=== PATIENT | male | born 1945 | race Caucasian/White ===

== ENCOUNTER → 2016-10-05 | Outpatient (CLI) | payer OTHER ==
[~2016-10-05] MED LIST: ASPI-435 PO; ATOR-22 PO; BROM0.07; CLR10 PO; DIFL0.0519; GABA-112 PO; GATI1SOL2; IBUP-1050 PO; MULTCAP33 PO
--- NOTE | 2016-10-05 11:48 | DIAGNOSTIC IMAGING REPORT ---
LEFT TIBIA/FIBULA 2 VIEWS ROUTINE CLINICAL HISTORY: 70 years-old Male presenting with Leg pain, medial, left. TECHNIQUE: Frontal and lateral views of the left lower leg were obtained. COMPARISON: Plain radiographs of the left knee from 2009. FINDINGS: Evidence of total left knee arthroplasty may be new from prior given the bridging component. Normal alignment. No hardware complication is evident. No acute fracture. Ankle mortise grossly intact. IMPRESSION: No acute osseous injury of the left lower leg. Postsurgical changes of total left knee arthroplasty without complication. Electronically signed by: Kar Dorado M.D. 10/05/2016 11:46 AM Dictated Date/Time: 10/05/2016 11:45 AM
== END | disposition home or self-care (01) ==
LOC: C.RADPV 11:23
PROVIDERS: ATTEND Family Medicine
DX: M79.605 Pain in left leg (principal)

== ENCOUNTER → 2016-10-06 | Outpatient (CLI) | payer OTHER ==
[2016-10-06 12:55] LABS: ALT/SGPT 39 U/L (12-78); AST/SGOT 23 U/L (15-37); BLOOD UREA NITROGEN 15 mg/dl (7-18); CARBON DIOXIDE 29 mmol/L (21-32); CHLORIDE 107 mmol/L (98-107); CHOLESTEROL 128 mg/dl (0-200); GLUCOSE 106 mg/dl (70-99); POTASSIUM 3.9 mmol/L (3.5-5.1); SODIUM 141 mmol/L (136-145); TRIGLYCERIDES 92 mg/dl (0-150); VERY LOW DENSITY LIPOPROT CALC 18 mg/dl
[2016-10-06 12:56] LABS: ALB/GLOB RATIO 1.1 (0.9-2); ALKALINE PHOSPHATASE 93 U/L (45-117); CHOLESTEROL/HDL RATIO 2.4; HDL CHOLESTEROL 54 mg/dl; LDL CHOLESTEROL CALCULATED 56 mg/dl
== END | disposition home or self-care (01) ==
LOC: C.LABPVFM 08:01
PROVIDERS: ATTEND Family Medicine
DX: E78.5 Hyperlipidemia, unspecified (principal)

== ENCOUNTER → 2016-10-11 | Day surgery (SDC) | payer OTHER ==
[2016-09-06 07:38] VITALS: Ht 188 cm; Wt 94.5 kg
[~2016-10-11] VITALS: Ht 188 cm; Wt 94.5 kg
[~2016-10-11] MED LIST changes: +500ML BSS 0.3ML EPI 1:1000PF IRRIG ONE; +ACETAMINOPHEN 325 MG TAB PO PRN; +AMVISC PLUS 0.8ML SYRINGE INT OCU ONE; +ATROPINE SULFATE 0.1 MG/ML 5ML SYR IV PRN; +BSS FLUSH ONE; +EpHEDrine SULFATE INJ 50 MG/ML AMP IV PRN; +EpINEphrine INJ 1MG/ML AMP 1 MG/ML AMP ONE; +LACTATED RINGER'S 1000ML 500 ML IV SCH; +LIDOCAINE 3.5% OPH GEL PER APPLICATION CHARGE ONE; +LIDOCAINE HCL 1% MPF 2 ML VIAL ONE; +MIDAZOLAM HCL 1 MG/ML 2ML VIAL ONE; +OCUCOAT 1 ML SOLN IO ONE; +PHENYLEPHRINE HCL 10% OP SOLN PER DROP CHARGE OPR SCH; +POVIDONE-IODINE OP SOLN 30 ML BTL ONE; +PROPARACAINE 0.5% OP SOLN PER DROP CHARGE OPR SCH; +TOBRAMYCIN/DEXAMETHASONE OPH OINT PER APPLN CHARGE ONE
[2016-10-11] MEDS: TROPICAMIDE 1% OP SOLN PER DROP CHARGE OPR SCH ×2 (09:01→09:07)
[2016-10-11] MEDS: PHENYLEPHRINE HCL 2.5% OP SOLN PER DROP CHARGE OPR SCH ×2 (09:01→09:06)
--- NOTE | 2016-10-11 09:01 | History & Physical Bridge - SC ---
H&P Re-Evaluation Bridge Note: I have examined the patient, reviewed the History & Physical and in the interval since the performance of the History & Physical I have noted the following changes of clinical significance: No changes noted
[2016-10-11] MEDS: CYCLOPENTOLATE HCL 1% OP SOLN PER DROP CHARGE OPR SCH ×2 (09:02→09:08)
[2016-10-11] MEDS: KETOROLAC 0.5% OP SOLN PER DROP CHARGE OPR SCH ×2 (09:03→09:09)
[2016-10-11] MEDS: GATIFLOXACIN OP SOLN PER DROP CHARGE OPR SCH ×2 (09:04→09:15)
--- NOTE | 2016-10-11 09:45 | [facility] Operative Report ---
Operative Report Date of Service Oct 11, 2016. Operative Report 1. PREOPERATIVE DIAGNOSIS: Cataract of the right eye. 2. POSTOPERATIVE DIAGNOSIS: Same. 3. PROCEDURE: Phacoemulsification with intraocular lens implantation of the right eye. SURGEON: Dr. Andi Swan. ANESTHESIA: Topical Lidocaine gel, 1% Non- Preserved intracameral Lidocaine, and monitored intravenous sedation. INDICATIONS FOR THE PROCEDURE: The patient is a 70 - year-old male with a history of cataract of the right eye causing significant visual impairment. The details of the proposed procedure were explained to the patient who asked appropriate questions and following discussion of all risks, benefits and alternatives agreed to have the procedure done. 4. OPERATION AND FINDINGS: DESCRIPTION OF PROCEDURE: After informed consent was obtained, the patient was brought to the Operating Room at the [facility]. The patient was placed in a supine position and then the right eye was prepped and draped in the usual sterile fashion for intraocular surgery. A drop of topical Lidocaine gel was placed in the operative eye. A wire lid speculum was then placed in the fornices. A corneal paracentesis was then created temporally. The Non-Preserved Lidocaine was then instilled into the anterior chamber. The anterior chamber was then pressurized with viscoelastic. A 2.0 mm clear corneal incision was then created temporally. A cystotome was inserted into the anterior chamber and used to create a tear in the anterior lens capsule. This capsular tear was then used to create a small flap and the flap was dragged in a counterclockwise direction in order to create a continuous curvilinear capsulorrhexis. Hydrodissection was accomplished with balanced salt solution. Phacoemulsification of the lens nucleus was then performed in a standard [id number] technique. The phaco time was 37 seconds with an average power of 19 %. The remaining cortical material was removed using irrigation aspiration. The capsular bag was then filled with viscoelastic. A Bausch & Lomb MI60L +26.0 diopters lens was then loaded into the injector and injected into the capsular bag. The remaining viscoelastic was removed with the irrigation aspiration handpiece. The wound was hydrated and then checked and found to be watertight. The intraocular pressure was checked and found to be adequate. The wire lid speculum was removed and the patient's face was cleaned and dried. TobraDex ointment was placed in the inferior fornix. The patient was discharged to the Recovery Room having tolerated the procedure well. There were no complications. The patient will be seen tomorrow in the office for follow-up. I attest to the content of the Intraoperative Record and any orders documented therein. Any exceptions are noted below.
--- NOTE | 2016-10-11 09:45 | Discharge Instructions-SurgCtr ---
Discharge Instructions Date of Service Oct 11, 2016. Visit Reason for Visit: Cataract Right Eye Discharge Discharge Diagnosis / Problem: cataract Discharge Goals Goal(s): Improve function Activity Recommendations Activity Limitations: per Instructions/Follow-up section Anesthesia . Post Anesthesia Instructions: If you have had General Anesthesia or IV Sedation: * Do not drive today. * Resume driving when surgeon permits. * Do not make important decisions or sign legal documents today. * Call surgeon for: 1. Temperature elevations greater than 101 degrees F. 2. Uncontrollable pain. 3. Excessive bleeding. 4. Persistent nausea and vomiting. 5. Medication intolerance (nausea, vomiting or rash). * For nausea and vomiting use only clear liquids such as: tea, soda, bouillon until nausea subsides, then gradually increase diet as tolerated. * If you have any concerns or questions, call your surgeon's office. If physician is unavailable and it is an emergency, call 911 or go to the nearest emergency room. . Instructions / Follow-Up Instructions / Follow-Up ACTIVITY RECOMMENDATIONS: * No strenuous lifting, jogging or running for 4 days * No swimming or yard work for 1 week. * Limited bending is permitted, such as putting on shoes. RETURN TO SCHOOL/WORK: No work until seen by physician in office. MEDICATIONS: Resume previous medications unless instructed otherwise by your surgeon. This includes eye drops for glaucoma. Zymaxid/Gatifloxacin (salas cap) - one drop every 2 hours until bedtime Nevanac/Ilevro/Prolensa/Ketorolac (mooney cap) - one drop every 4 hours until bedtime Prednisolone/Durezol (white/pink cap, SHAKE WELL) - one drop every 2 hours until bedtime Starting tomorrow - all 3 drops every 4 hours until seen in the office Optive drops - as needed for discomfort SPECIAL CARE INSTRUCTIONS: * Wear eyeshield when sleeping, for four nights. * You may wear your own glasses or sunglasses while awake. * You may read or watch TV * You may shower and wash your face, but be gentle around the eye and pat dry. * Blurry vision and mild irritation are normal. * Call office if pain is more severe or vision becomes dark at . FOLLOW UP VISIT: Follow-up with Dr Swan tomorrow. Diet Recommendations Home Diet: resume previous diet Procedures Procedures Performed: Right Cataract Phacoemulsification With Intraocular Lens Implant Pending Studies Studies pending at discharge: no Medical Emergencies . Who to Call and When: Medical Emergencies: If at any time you feel your situation is an emergency, please call 911 immediately. . Non-Emergent Contact Non-Emergency issues call your: Tufting Machine Operator Single Needle . . "Provider Documentation" section prepared by Andi Swan. .
--- NOTE | 2016-10-11 09:51 | Anesthesia Progress Nt - [facility] ---
Anesthesia Post Op Note Date & Time Oct 11, 2016 at 09:50 Vital Signs Pain Intensity: 0 Vital Signs Past 12 Hours Date Time Temp Pulse Resp B/P (MAP) Pulse Ox O2 Delivery O2 Flow Rate FiO2 10/11/16 08:53 36.5 61 14 164/97 (119) 100 Room Air Notes Mental Status: alert / awake / arousable, participated in evaluation Pt Amnestic to Procedure: Yes Nausea / Vomiting: adequately controlled Pain: adequately controlled Airway Patency, RR, SpO2: stable & adequate BP & HR: stable & adequate Hydration State: stable & adequate Anesthetic Complications: no major complications apparent
[2016-10-11 10:20] VITALS: BP 136/82; PULSE 50; O2SAT 100
== END | disposition home or self-care (01) ==
LOC: X.SURG 08:22
PROVIDERS: ATTEND Ophthalmology
DX: H26.9 Unspecified cataract (principal); E78.5 Hyperlipidemia, unspecified; N40.0 Benign prostatic hyperplasia without lower urinary tract symptoms; M25.50 Pain in unspecified joint; Z79.899 Other long term (current) drug therapy

== ENCOUNTER → 2016-11-01 | Day surgery (SDC) | payer OTHER ==
[2016-10-20 09:24] VITALS: Ht 188 cm; Wt 94.5 kg
[~2016-11-01] VITALS: Ht 188 cm; Wt 94.5 kg
[~2016-11-01] MED LIST changes: -ASPI-435 PO; -ATROPINE SULFATE 0.1 MG/ML 5ML SYR IV PRN; -EpHEDrine SULFATE INJ 50 MG/ML AMP IV PRN; -GATI1SOL2; +PHENYLEPHRINE HCL 10% OP SOLN PER DROP CHARGE OPL SCH; -PHENYLEPHRINE HCL 10% OP SOLN PER DROP CHARGE OPR SCH; +PROPARACAINE 0.5% OP SOLN PER DROP CHARGE OPL SCH; -PROPARACAINE 0.5% OP SOLN PER DROP CHARGE OPR SCH
[2016-11-01] MEDS: PHENYLEPHRINE HCL 2.5% OP SOLN PER DROP CHARGE OPL SCH ×2 (09:52→09:56)
[2016-11-01] MEDS: TROPICAMIDE 1% OP SOLN PER DROP CHARGE OPL SCH ×2 (09:52→09:57)
[2016-11-01] MEDS: CYCLOPENTOLATE HCL 1% OP SOLN PER DROP CHARGE OPL SCH ×2 (09:53→09:58)
[2016-11-01] MEDS: GATIFLOXACIN OP SOLN PER DROP CHARGE OPL SCH ×2 (09:54→10:03)
[2016-11-01] MEDS: KETOROLAC 0.5% OP SOLN PER DROP CHARGE OPL SCH ×2 (09:54→09:59)
--- NOTE | 2016-11-01 10:01 | History & Physical Bridge - SC ---
H&P Re-Evaluation Bridge Note: I have examined the patient, reviewed the History & Physical and in the interval since the performance of the History & Physical I have noted the following changes of clinical significance: Diagnosis: Left Cataract Procedure: Left Cataract Removal with Lens Implant No changes noted
--- NOTE | 2016-11-01 10:35 | [facility] Operative Report ---
Operative Report Date of Service Nov 01, 2016. Operative Report 1. PREOPERATIVE DIAGNOSIS: Cataract of the left eye. 2. POSTOPERATIVE DIAGNOSIS: Same. 3. PROCEDURE: Phacoemulsification with intraocular lens implantation of the left eye. SURGEON: Dr. Andi Swan. ANESTHESIA: Topical Lidocaine gel, 1% Non- Preserved intracameral Lidocaine, and monitored intravenous sedation. INDICATIONS FOR THE PROCEDURE: The patient is a 70 - year-old male with a history of cataract of the left eye causing significant visual impairment. The details of the proposed procedure were explained to the patient who asked appropriate questions and following discussion of all risks, benefits and alternatives agreed to have the procedure done. 4. OPERATION AND FINDINGS: DESCRIPTION OF PROCEDURE: After informed consent was obtained, the patient was brought to the Operating Room at the [facility]. The patient was placed in a supine position and then the left eye was prepped and draped in the usual sterile fashion for intraocular surgery. A drop of topical Lidocaine gel was placed in the operative eye. A wire lid speculum was then placed in the fornices. A corneal paracentesis was then created temporally. The Non-Preserved Lidocaine was then instilled into the anterior chamber. The anterior chamber was then pressurized with viscoelastic. A 2.0 mm clear corneal incision was then created temporally. A cystotome was inserted into the anterior chamber and used to create a tear in the anterior lens capsule. This capsular tear was then used to create a small flap and the flap was dragged in a counterclockwise direction in order to create a continuous curvilinear capsulorrhexis. Hydrodissection was accomplished with balanced salt solution. Phacoemulsification of the lens nucleus was then performed in a standard [id number] technique. The phaco time was 31 seconds with an average power of 18 %. The remaining cortical material was removed using irrigation aspiration. The capsular bag was then filled with viscoelastic. A Bausch & Lomb MI60L +26.5 diopters lens was then loaded into the injector and injected into the capsular bag. The remaining viscoelastic was removed with the irrigation aspiration handpiece. The wound was hydrated and then checked and found to be watertight. The intraocular pressure was checked and found to be adequate. The wire lid speculum was removed and the patient's face was cleaned and dried. TobraDex ointment was placed in the inferior fornix. The patient was discharged to the Recovery Room having tolerated the procedure well. There were no complications. The patient will be seen tomorrow in the office for follow-up. I attest to the content of the Intraoperative Record and any orders documented therein. Any exceptions are noted below.
--- NOTE | 2016-11-01 10:35 | Discharge Instructions-SurgCtr ---
Discharge Instructions Date of Service Nov 01, 2016. Visit Reason for Visit: Cataract Left Eye Discharge Discharge Diagnosis / Problem: cataract Discharge Goals Goal(s): Improve function Activity Recommendations Activity Limitations: per Instructions/Follow-up section Anesthesia . Post Anesthesia Instructions: If you have had General Anesthesia or IV Sedation: * Do not drive today. * Resume driving when surgeon permits. * Do not make important decisions or sign legal documents today. * Call surgeon for: 1. Temperature elevations greater than 101 degrees F. 2. Uncontrollable pain. 3. Excessive bleeding. 4. Persistent nausea and vomiting. 5. Medication intolerance (nausea, vomiting or rash). * For nausea and vomiting use only clear liquids such as: tea, soda, bouillon until nausea subsides, then gradually increase diet as tolerated. * If you have any concerns or questions, call your surgeon's office. If physician is unavailable and it is an emergency, call 911 or go to the nearest emergency room. . Diet Recommendations Home Diet: resume previous diet Procedures Procedures Performed: Left Cataract Phacoemulsification With Intraocular Lens Implant Pending Studies Studies pending at discharge: no Medical Emergencies . Who to Call and When: Medical Emergencies: If at any time you feel your situation is an emergency, please call 911 immediately. . Non-Emergent Contact Non-Emergency issues call your: Customer Care Specialist . . "Provider Documentation" section prepared by Andi Swan. .
[2016-11-01 10:36] VITALS: TEMP 36.7
[2016-11-01 10:57] VITALS: BP 119/77; PULSE 74; O2SAT 98
--- NOTE | 2016-11-01 11:03 | Anesthesia Progress Nt - [facility] ---
Anesthesia Post Op Note Date & Time Nov 01, 2016 at 11:03 Vital Signs Pain Intensity: 0 Vital Signs Past 12 Hours Date Time Temp Pulse Resp B/P (MAP) Pulse Ox O2 Delivery O2 Flow Rate FiO2 11/01/16 10:57 74 20 119/77 (91) 98 Room Air 11/01/16 10:36 36.7 51 18 124/76 (92) 98 Room Air 11/01/16 09:30 36.3 58 16 141/85 (103) 97 Room Air Notes Mental Status: alert / awake / arousable, participated in evaluation Pt Amnestic to Procedure: Yes Nausea / Vomiting: adequately controlled Pain: adequately controlled Airway Patency, RR, SpO2: stable & adequate BP & HR: stable & adequate Hydration State: stable & adequate Anesthetic Complications: no major complications apparent
== END | disposition home or self-care (01) ==
LOC: X.SURG 09:19
PROVIDERS: ATTEND Ophthalmology
DX: H26.9 Unspecified cataract (principal); E78.5 Hyperlipidemia, unspecified; N40.0 Benign prostatic hyperplasia without lower urinary tract symptoms; G50.0 Trigeminal neuralgia; Z96.659 Presence of unspecified artificial knee joint; Z83.3 Family history of diabetes mellitus; Z82.49 Family history of ischemic heart disease and other diseases of the circulatory system

== ENCOUNTER → 2016-11-28 | Outpatient (CLI) | payer OTHER ==
[~2016-11-28] MED LIST changes: -500ML BSS 0.3ML EPI 1:1000PF IRRIG ONE; -ACETAMINOPHEN 325 MG TAB PO PRN; -AMVISC PLUS 0.8ML SYRINGE INT OCU ONE; -BSS FLUSH ONE; -EpINEphrine INJ 1MG/ML AMP 1 MG/ML AMP ONE; -LACTATED RINGER'S 1000ML 500 ML IV SCH; -LIDOCAINE 3.5% OPH GEL PER APPLICATION CHARGE ONE; -LIDOCAINE HCL 1% MPF 2 ML VIAL ONE; -MIDAZOLAM HCL 1 MG/ML 2ML VIAL ONE; -OCUCOAT 1 ML SOLN IO ONE; -PHENYLEPHRINE HCL 10% OP SOLN PER DROP CHARGE OPL SCH; -POVIDONE-IODINE OP SOLN 30 ML BTL ONE; -PROPARACAINE 0.5% OP SOLN PER DROP CHARGE OPL SCH; -TOBRAMYCIN/DEXAMETHASONE OPH OINT PER APPLN CHARGE ONE
[2016-11-28 13:03] LABS: BLOOD UREA NITROGEN 21 mg/dl (7-18); CREATININE 1.06 mg/dl (0.60-1.40)
== END | disposition home or self-care (01) ==
LOC: C.LABPVFM 09:25
PROVIDERS: ATTEND Orthopaedic Surgery Adult Reconstructive Orthopaedic Surgery
DX: Z01.812 Encounter for preprocedural laboratory examination (principal)

== ENCOUNTER 2022-05-19 11:03 | Observation (INO) ==
--- NOTE | 2022-03-30 15:24 | PAT Medication Instructions ---
Medication Instructions Date of Service March 30, 2022 Home Medications Medication Instructions Recorded methylphenidate HCl 27 mg 27 mg PO QAM #30 tabs 11/01/21 tablet,extended release 24 hr (Concerta) psyllium husk 0.4 gram capsule 0.4 g PO DAILY #30 caps 11/01/21 (Fiber (psyllium husk)) methylphenidate HCl 27 mg tablet,extended release 24 hr (Concerta) 27 mg PO QAM psyllium husk 0.4 gram capsule (Fiber (psyllium husk)) 0.4 g PO DAILY acetaminophen 500 mg tablet 500 mg PO Q6H PRN Pain sildenafil 50 mg tablet 50 mg PO DAILY PRN Erectile Dysfunction STOP taking 24 hours before surgery sildenafil 50 mg tablet 50 mg PO DAILY PRN Erectile Dysfunction DO NOT take the morning of surgery methylphenidate HCl 27 mg tablet,extended release 24 hr (Concerta) 27 mg PO QAM psyllium husk 0.4 gram capsule (Fiber (psyllium husk)) 0.4 g PO DAILY Take morning of surgery With a small sip of water, OTHERWISE NOTHING TO EAT OR DRINK AFTER MIDNIGHT: acetaminophen 500 mg tablet 500 mg PO Q6H PRN Pain (if needed) Take evening before surgery acetaminophen 500 mg tablet 500 mg PO Q6H PRN Pain (if needed) Other Notes If you have any questions please call us at [phone] or [phone] or [phone] or [phone]
--- NOTE | 2022-04-04 11:42 | Anesthesiology Consultation ---
Date of Service April 04, 2022 Assessment & Plan (1) Encounter for pre-operative examination: - COVID screening: Per assessment on 04/04: No known COVID-19 positive contacts or current COVID-19 related symptoms. Travel screen negative. Patient vaccinated. At surgeon discretion if preop Covid testing being done. - Outpatient joint assessment: Pt currently scheduled for inpatient pathway. If surgeon requests review for outpatient joint pathway, patient not recommended candidate for outpatient joint program from anesthesia standpoint. - Patient acceptable risk for surgery pending surgeon-ordered PCP preop evaluation (JAYEG, appt 04/06). Chart Review Chart Review: Patient seen in Pre Admission Testing Teaching & Discussion Pre-Anesthesia Teaching/Discussion Notes: Instructed NPO after midnight before surgery,except medications with 15 cc of water. Medication instructions provided according to the PAT guidelines. p History Surgery Operation Date: 04/28/22 07:00 Proposed Procedures p Right Shoulder Anatomic Total Shoulder Replacement - Bhargav Santana M.D. Height/Weight Height: 6 ft 2 in Weight: 94 kg Allergies Allergy/AdvReac Type Severity Reaction Status Date / Time vancomycin Allergy Severe N/V, Verified 04/05/22 08:27 altered mental status, fever, chills, sweats,hives mold Allergy Mild Rhinitis Verified 04/05/22 08:27 pollen extracts Allergy Mild Rhinitis Verified 04/05/22 08:27 tree and shrub pollen Allergy Mild Rhinitis Verified 04/05/22 08:27 procaine AdvReac Intermediate Tachycardia Verified 04/05/22 08:27 doxycycline AdvReac Unknown Severe sun Verified 04/05/22 08:27 sensitivity Medications Home Medications Medication Instructions Recorded Confirmed Last Taken methylphenidate HCl 27 mg 27 mg PO QAM #30 tabs 11/01/21 03/30/22 Unknown tablet,extended release 24 hr (Concerta) psyllium husk 0.4 gram capsule 0.4 g PO DAILY #30 caps 11/01/21 03/30/22 Unknown (Fiber (psyllium husk)) acetaminophen 500 mg tablet 500 mg PO Q6H PRN Pain 03/30/22 03/30/22 Unknown sildenafil 50 mg tablet 50 mg PO DAILY PRN Erectile 03/30/22 03/30/22 Unknown Dysfunction Past Medical History Medical History ADHD BPH (benign prostatic hyperplasia) No medications Chronic pain Gout Hx (single episode) History of colitis Hx microscropic colitis (~), 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 but was then 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 it was a "false positive"- no current issues/"resolved" History of skin cancer Hyperlipidemia No current medications Trigeminal neuralgia Hx, no recent issues Exercise / Class Metabolic Activity II 4-5 Yardwork/Stairs/Walk up hill Past Family History Family History Father Diabetes Hypertension Mother Cancer Denies family history of Ovarian cancer Prostate cancer Myocardial infarction Breast cancer Past Surgical History Surgical History History of cataract surgery R/L History of colonoscopy History of open reduction and internal fixation (ORIF) procedure right forearm with hardware History of surgical removal of skin lesion thumb area History of total knee arthroplasty Left knee History of vasectomy S/P inguinal hernia repair right S/P revision of total knee left knee Past Anesthesia History No Family Hx of Anesthesia Complications and Other (Slow to wake) History of PONV No Hx of PONV and No Hx of Motion Sickness Social History Smoking Status: Never smoker Do You Dip or Chew Tobacco: No Hx Alcohol Use: Yes alcohol intake frequency: holidays/special occasions only Hx Substance Use: No substance use type: does not use Review of Systems Patient denies chest pain, shortness of breath, dyspnea on exertion, fever, chills, cough, wheezing, palpitations. Physical Exam Vital Signs VITALS BP 132/76 P 75 TEMP 99.0 SP02 97%RA RESP 16 PHYSICAL Full cervical extension range of motion. Full TMJ range of motion. TMD 3 finger breaths Mallampati Score 2 Dentition: + implants (several) Lungs: clear throughout to auscultation Cardiac: regular rate and rhythm, no murmurs noted Spine: normal Carotid arteries: negative bruit Extremities: no edema Lab Results Anesthesia Preop Results Results Anesthesia Widget: WBC 6.99 K/ul (4.8-10.8) 04/04/22 Hgb 14.3 g/dl (14.0-18.0) 04/04/22 Hct 41.2 % (42.0-52.0) L 04/04/22 Plt 215 K/uL (130-400) 04/04/22 Na 138 mmol/L (136-145) 04/04/22 K 4.1 mmol/L (3.5-5.1) 04/04/22 Cl 105 mmol/L (98-107) 04/04/22 CO2 27 mmol/L (21-32) 04/04/22 BUN 26 mg/dl (6-23) H 04/04/22 Creat 1.05 mg/dl (0.6-1.4) 04/04/22 Glucose Level 96 mg/dl (70-99(Fasting)) 04/04/22 PT 10.7 Seconds (9.0-12.0) 04/04/22 PTT 26.1 Seconds (21.0-31.0) 04/04/22 INR 1.0 (0.9-1.1) 04/04/22 Urine Color Dark Yellow 04/04/22 Urine Appearance Clear (Clear) 04/04/22 Urine pH 6.0 (4.5-7.5) 04/04/22 Urine Specific Stowell 1.028 (1.000-1.030) 04/04/22 Urine Protein Trace (Negative) H 04/04/22 Urine Glucose (UA) Negative (Negative) 04/04/22 Urine Ketones Trace (Negative) H 04/04/22 Urine Blood Negative (Negative) 04/04/22 Urine Nitrite Negative (Negative) 04/04/22 Urine Bilirubin Negative (Negative) 04/04/22 Urine Urobilinogen Negative (Negative) 04/04/22 Urine Leukocyte Esterase Negative (Negative) 04/04/22 Urine WBC (Auto) 0 /hpf (0-5) 04/04/22 Urine RBC (Auto) 0-4 /hpf (0-4) 04/04/22 Urine Hyaline Casts (Auto) 0 /lpf (0-5) 04/04/22 Urine Epithelial Cells (Auto) 0-5 /lpf (0-5) 04/04/22 Urine Bacteria (Auto) Negative (Negative) 04/04/22 Blood Type O Positive 04/04/22 Antibody Screen NEGATIVE 04/04/22 Testing Electrocardiogram Date: 04/04/22 NSR at 65bpm. Chest X-Ray Date: 04/04/22 FINDINGS: Several old right rib fractures are incidentally noted. Lung volumes are normal. No consolidation to suggest pneumonia. Linear left basilar opacity favors atelectasis. There is no pneumothorax or pleural effusion. Cardiac size is normal. Mediastinal contours are normal. There is no evidence for pulmonary edema. IMPRESSION: No acute cardiopulmonary findings. No change in appearance of the chest. COVID-19 Risk Screen Screening Information COVID-19 Screen Date: 04/04/22 Exposure 21 Days Family/Household +COVID Last 21 Days: No Exposure 10 Days Any COVID Exposure Last 10 Days: No Symptoms Last 10 Days Experienced COVID Sx Last 10 Days: No + COVID 0-90 Days COVID + in Last 0-90 Days: No
--- NOTE | 2022-05-18 16:50 | History & Physical Report ---
Date of Service May 18, 2022 Assessment & Plan (1) Primary osteoarthritis, right shoulder: Plan: He has severe right shoulder primary glenohumeral joint arthritis. We discussed further conservative management with repeat glenohumeral joint steroid injections versus definitive surgical intervention with a total shoulder arthroplasty. We again discussed anatomic versus reverse total shoulder arthroplasty, and the criteria and differences in activity restrictions for both. His MRI shows that his rotator cuff is intact, and I think he would be a good candidate for an anatomic total shoulder. He really wants to proceed with right shoulder replacement surgery, and does not want to pursue further injections. I do think this is reasonable. Risks, benefits, and alternatives of surgery were explained in detail. The surgical procedure, as well as postoperative recovery and rehabilitation, was also explained in detail. Risks include bleeding; infection; damage to surrounding structures such as nerves, blood vessels, and tendons that run in the area; persistent pain or stiffness; hardware failure; dislocation; brachial plexus palsy; blood clots; or need for further surgery. The patient understands all of this and wishes to proceed with surgery. Risks will be reviewed on the day of surgery and informed consent obtained. History of Present Illness Chief Complaint: Right shoulder pain Primary Care Provider: Alma Montoya MD Mr. Rick squires. Again, he is a 75-year-old esddt-fazs-orfcyhbe male with chronic right shoulder pain with gradual progressive worsening. He saw Dr. Spangler in mid-September, and was given a shoulder joint steroid injection for his arthritis. They discussed shoulder replacement surgery. He comes in today for second opinion evaluation of such. He reports that he is very active and lives alone. 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 He notes that after his injection, he got some short-term improvement in his pain, but nothing terribly significant. This pain is waking him up at night. He previously used to use anti-inflammatories fairly effectively, but eventually developed colitis related to diclofenac use, and had to stop. Is fairly healthy and very active. He denies significant medical problems. Allergies Allergy/AdvReac Type Severity Reaction Status Date / Time vancomycin Allergy Severe N/V, Verified 05/03/22 10:27 altered mental status, fever, chills, sweats,hives mold Allergy Mild Rhinitis Verified 05/03/22 10:27 pollen extracts Allergy Mild Rhinitis Verified 05/03/22 10:27 tree and shrub pollen Allergy Mild Rhinitis Verified 05/03/22 10:27 procaine AdvReac Intermediate Tachycardia Verified 05/03/22 10:27 doxycycline AdvReac Unknown Severe sun Verified 05/03/22 10:27 sensitivity Home Medications Medication Instructions Recorded Confirmed Type methylphenidate HCl 27 mg 27 mg PO QAM #30 tabs 11/01/21 05/03/22 Rx tablet,extended release 24 hr (Concerta) psyllium husk 0.4 gram capsule 0.4 g PO DAILY #30 caps 11/01/21 05/03/22 Rx (Fiber (psyllium husk)) acetaminophen 500 mg tablet 500 mg PO Q6H PRN Pain 03/30/22 05/03/22 History sildenafil 50 mg tablet 50 mg PO DAILY PRN Erectile 03/30/22 05/03/22 History Dysfunction Past Med/Surg History Medical History ADHD BPH (benign prostatic hyperplasia) Chronic pain Gout History of colitis History of skin cancer Hyperlipidemia Trigeminal neuralgia Surgical History History of cataract surgery History of colonoscopy History of open reduction and internal fixation (ORIF) procedure History of surgical removal of skin lesion History of total knee arthroplasty History of vasectomy S/P inguinal hernia repair S/P revision of total knee Family History Father Diabetes Hypertension Mother Cancer Denies family history of Ovarian cancer Prostate cancer Myocardial infarction Breast cancer Social History Smoking Status: Never smoker Second Hand Exposure: No; Hx Alcohol Use: Yes Alcohol Intake Frequency: Monthly or Less Hx Substance Use: No Preferred Language: Citizen Of [place] Communication Ability: Effective Hearing Ability: Use of Hearing Aid Carbon Accountant Required: No Beliefs That Will Affect Care: None marital status: Single Current Living Situation: Alone current occupational status: retired How many Children do You have: 0 Feels Safe at Home: Yes Childhood Exposure to Second-Hand Smoke: Yes caffeine: Yes (Coffee ) Dental Care, Regularly: Yes 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: 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 Rotator cuff strength is overall well maintained, with the exception of external rotation, which is slightly weak. Results & Data Diagnostic Findings Previous x-rays of the right shoulder from September 29 were reviewed. They show severe glenohumeral joint arthritis with complete loss of the joint space and large osteophyte formation. No obvious proximal migration of the humeral head. New MRI of the right shoulder obtained this morning was reviewed. It shows some rotator cuff tendinitis and very mild partial-thickness rotator cuff tearing, but no high-grade partial-thickness or full-thickness rotator cuff tears. Rotator cuff looks largely okay. Type II acromion. There is some acromioclavicular joint arthritis causing some mass-effect on the underlying supraspinatus muscle belly. No fatty atrophy of the rotator cuff muscle bellies. Severe glenohumeral joint arthritis.
[~2022-05-19 11:03] MED LIST changes: +ACETAMINOPHEN 500 MG TAB PO SCH; -ATOR-22 PO; -BROM0.07; +BUPIVACAINE 0.5 % 5 MG/1 ML PF 10ML VIAL ONE; -CLR10 PO; +CeleBREX 200 MG CAP PO SCH; -DIFL0.0519; +FAMOTIDINE 20 MG TAB PO SCH; -GABA-112 PO; +GABAPENTIN 300 MG CAP PO SCH; -IBUP-1050 PO; +LR 15ML/HR IV SCH; +METOCLOPRAMIDE HCL 10 MG TABLET PO SCH; -MULTCAP33 PO; +TRANEXAMIC ACID 1,000 MG **IV Pre-op IV SCH; +dexAMETHasone 4 MG TAB PO SCH
[2022-05-19] MEDS ORDERED: ATROPINE SULFATE 0.1 MG/ML 10ML SYR IV PRN (12:40)
[2022-05-19] MEDS ORDERED: LABETALOL HCL IV 5 MG/ML 20ML IV PRN (12:40)
[2022-05-19] MEDS ORDERED: FLUMAZENIL 0.1 MG/1 ML 10 ML VIAL IV PRN (12:40)
[2022-05-19] MEDS ORDERED: ePHEDrine sulfate 50 MG/ML AMP IV PRN (12:40)
[2022-05-19] MEDS ORDERED: NALOXONE HCL 0.4 MG/1 ML VIAL/CARP IV PRN (12:40)
[2022-05-19] MEDS ORDERED: ONDANSETRON INJ 2 MG/ML 2 ML VIAL IV PRN (12:40)
[2022-05-19] MEDS ORDERED: PROMETHAZINE HCL 12.5 MG in SODIUM CHLORIDE 0.9% 50 ML IV PRN (12:40)
[2022-05-19] MEDS ORDERED: HYDROmorphone INJ 1 MG/ML SYRINGE IV PRN (12:40)
[2022-05-19] MEDS ORDERED: fentaNYL citrate PF 100 MCG/2 ML VIAL IV PRN (12:40)
[2022-05-19] MEDS ORDERED: fentaNYL citrate PF 100 MCG/2 ML VIAL ONE (12:43)
[2022-05-19] MEDS ORDERED: MIDAZOLAM HCL 1 MG/ML 2ML VIAL ONE (12:43)
--- NOTE | 2022-05-19 12:55 | History & Physical Bridge Note ---
Date of Service May 19, 2022 History & Physical Bridge Note I have examined the patient, reviewed the History & Physical and in the interval since the performance of the History & Physical I have noted the following changes of clinical significance: no changes noted
[2022-05-19] MEDS ORDERED: LIDOCAINE 2% MPF LOCAL 5 ML VIAL ONE (13:01)
[2022-05-19] MEDS ORDERED: PROPOFOL IV EMULSION 10 MG/ML 20 ML VIAL IV ONE (13:01)
[2022-05-19] MEDS ORDERED: ROCURONIUM BROMIDE 10 MG/ML 5 ML VIAL IV ONE ×2 (13:01→14:01)
[2022-05-19] MEDS ORDERED: ONDANSETRON INJ 2 MG/ML 2 ML VIAL ONE (13:48)
[2022-05-19] MEDS ORDERED: SUGAMMADEX SODIUM 200 MG/2 ML VIAL IV ONE (15:49)
--- NOTE | 2022-05-19 16:07 | Operative Report ---
Post Operative Report Pre & Post Diagnosis Operation Date: 05/19/22 13:55 Pre-Op Diagnosis: Right shoulder primary glenohumeral joint arthritis Post-Op Diagnosis: Right shoulder primary glenohumeral joint arthritis, subacromial impingement I identified the patient and participated in the time-out.: Yes Procedure Operation Date: 05/19/22 13:55 Actual Procedures Right anatomic total shoulder arthroplasty (47126) Open biceps tenodesis (99228) Open acromioplasty (86139) - Bhargav Santana M.D. Surgeon Bhargav Santana MD Director Of Government Sales Tha Redd PA-C Estimated Blood Loss 75 Findings Consistent with Post-Op Diagnosis Specimens None Drains None Anesthesia Type General Regional Complications none Disposition Disposition: Recovery Room Indications Mr. Cabrera is a 76-year-old male with chronic right shoulder pain. History, clinical exam, and imaging were consistent with the above diagnosis. Risks, benefits, and alternatives of surgery were explained in detail. The patient understood all this and wished to proceed. Description of Procedure Components Implanted: Tornier Anatomic Total Shoulder implants Perform+ Pegged Cortiloc polyethylene glenoid: Medium, 40 radius, 15 degree posterior augment Ascend Flex humeral stem: 6B Standard length (86mm) Humeral head: 52 x 23mm, high offset Patient was identified in the preoperative holding area. Operative extremity was marked. Regional blockade was given by the Anesthesia Staff. Patient was then brought back to the operating room, and general anesthesia was induced without complication. Appropriate weight-based dose of Ancef was infused intravenously for antibiotic prophylaxis. The patient was then placed in the beachchair position. Right arm was then prepped and draped in a standard sterile fashion using Chlorhexidine prep. A standard deltopectoral incision was made through the skin and subcutaneous tissue. The cephalic vein was identified and retracted medially. Small branches to the deltoid were coagulated as necessary. The clavipectoral fascia was then incised and the subdeltoid space was opened. The rotator cuff was found to be intact, and I therefore decided to perform an anatomic total shoulder arthroplasty as planned preoperatively. However, a fairly large undersurface spur on the anterolateral aspect of the acromion was palpated. I was concerned that this may wear through and cause a tear of the rotator cuff tendon in the future, requiring revision to a reverse total shoulder arthroplasty. I therefore decided to perform an open acromioplasty. Osteotome and pituitary rongeur were used to resect the undersurface bony spur at the anterolateral corner of the acromion. The biceps tendon was identified within the bicipital groove and tenodesed at the superior border of the pectoralis tendon with #2 FiberWire suture. The biceps tendon was then divided proximal to the tenodesis site and the rotator interval was opened. The proximal portion of the biceps tendon was excised. Lesser tuberosity osteotomy was then performed to detach the subscapularis off of the proximal humerus; this was tagged with a #0 Vicryl suture. The glenohumeral joint was then dislocated, and large osteophytes were debrided with a ronguer. The humeral head cut was then made in the appropriate inclination and version. The intramedullary canal of the humerus was then opened with a canal finder and lateralizing reamer. The humeral canal was then sequentially broached to the appropriate size. A protective cap was then placed on top of the humeral trial. I then turned my attention to the glenoid. The proximal stump of the biceps tendon was excised, along with the labrum circumferentially around the glenoid. The Blueprint drill guide was then positioned on the glenoid, and the guidepin was then inserted. The rotation hole for the angled wilfredo-glenoid reamer was also drilled. The paleo-reamer was then inserted over the guidepin and the anterior half of the glenoid reamed to an appropriate depth. The angled wilfredo-reamer was then inserted over the guidewire and into the rotation hole, and the posterior half of the glenoid reamed to an appropriate depth. The central peg drill hole was made over the guidewire. The drill guide for the peripheral glenoid pegs was then placed onto the glenoid surface, and 3 peripheral drill holes made within the glenoid in an appropriate orientation. Morselized cancellous bone was packed into the fins of the Cortiloc central peg, and bone cement was placed into the 3 peripheral glenoid peg holes. The glenoid component was then implanted into place, and excess cement removed. A trial humeral head was inserted, and a trial reduction was carried out. Once I achieved acceptable joint stability and range of motion with the trial implants, the trials were removed and the final humeral implants impacted into position. Prior to final impaction of the humeral component, I inserted two #2 FiberWire sutures for subsequent repair of the lesser tuberosity osteotomy. I then took the shoulder through full range of motion to ensure good stability and acceptable motion. Wound was then copiously irrigated with sterile saline. The lesser tuberosity and its attached subscapularis were then repaired to the lesser tuberosity with the previously placed #2 FiberWire sutures. The rotator interval was then closed with the shoulder held in external rotation with #2 FiberWire suture. Deep fascia was closed with 0 V-lock suture. Subcutaneous tissue was closed with 2-0 V-lock, and skin was closed with 3-0 V-lock. Skin was then sealed with Dermabond. Sterile dressings were then applied with a waterproof silver- impregnated dressing, and the arm was placed into a sling. The patient was awakened from anesthesia and taken to the Post Anesthesia Care Unit in stable condition. There were no immediate complications from the procedure. I was present and scrubbed for the entire procedure, with the exception of final skin closure and dressing application. Due to the complex nature of the procedure, the entire surgery was performed with the operational assistance of Tha Redd PA-C. The contract administrative assistant, under direct supervision, was involved in the performance of all aspects of the surgical procedure including hemostasis, tissue incision and retraction, instrument management, patient positioning, and wound closure. I attest to the content of the Intraoperative Record and any orders documented therein. Any exceptions are noted below.
--- NOTE | 2022-05-19 17:00 | XRay Report ---
XR shoulder RT min 2V routine CLINICAL HISTORY: Post shoulder surgery COMPARISON STUDY: None. FINDINGS: There is a right shoulder arthroplasty. Hardware appears intact. No fracture or dislocation within the right shoulder. There is an old, healed right fourth rib fracture. IMPRESSION: Status post a right shoulder prosthesis. No evidence for hardware complication. ACT 112: Negative or not required by law. Electronically signed by: Fidel Valencia M.D. 05/19/2022 4:58 PM
[2022-05-19] MEDS ORDERED: MAGNESIUM HYDROXIDE SUSP 30 ML UDC PO PRN (17:03)
[2022-05-19] MEDS ORDERED: bisacodyL 10 MG SUPP PR PRN (17:03)
[2022-05-19] MEDS ORDERED: SODIUM CHLORIDE 0.9% 1000ML 1,000 ML IV SCH (17:03)
--- NOTE | 2022-05-19 17:34 | Anesthesiology Progress Note ---
Date of Service May 19, 2022 Anesthesia Post Procedure Vital Signs Vital Signs: Temp Pulse Pulse Resp BP Pulse Ox O2 Del Method 05/19/22 17:00 36.6 C 81 16 148/77 H 96 Room Air 05/19/22 16:45 36.2 C L 78 20 143/80 H 96 Room Air 05/19/22 16:35 82 20 139/86 97 Room Air 05/19/22 16:25 83 18 146/92 H 99 Oxymask 05/19/22 16:17 36.0 C L 88 16 147/82 H 94 Oxymask 05/19/22 11:38 36.7 C 71 20 142/83 H 96 Room Air O2 Flow Rate 05/19/22 17:00 05/19/22 16:45 05/19/22 16:35 05/19/22 16:25 6 05/19/22 16:17 6 05/19/22 11:38 Transfer of Care Handoff Completed per policy Notes Mental Status: alert / awake / arousable and participated in evaluation Patient Amnestic to Procedure: Yes Nausea / Vomiting: adequately controlled Pain: adequately controlled Airway Patency, RR, SpO2: stable & adequate BP & HR: stable & adequate Hydration State: stable & adequate Anesthetic Complications: no major complications apparent and Pt Satisfied with anesthetic care
[2022-05-19] MEDS: DOCUSATE SODIUM 100 MG CAP PO SCH (20:21)
[2022-05-19] MEDS ORDERED: SENNA 8.6 MG TAB PO SCH (21:00)
[2022-05-20 06:47] LABS: Basophils # (auto) 0.01 K/uL (0-0.2); Basophils % (auto) 0.1 %; Hematocrit (blood only) 41.6 % (42.0-52.0); Hemoglobin 14.2 g/dl (14.0-18.0); Immature Granulocytes # (auto) 0.04 K/uL (0.01-0.20); Immature Granulocytes % (auto) 0.4 %; Lymphocytes # (auto) 0.91 K/uL (1.2-3.4); Lymphocytes % (auto) 8.9 %; Mean Corpuscular Hemoglobin 30.6 pg (25.0-34.0); Mean Corpuscular Hgb Conc 34.1 g/dL (32.0-36.0); Mean Corpuscular Volume 89.7 fL (80.0-100.0); Mean Platelet Volume 9.8 fL (9.4-12.4); Monocytes # (auto) 0.97 K/uL (0.11-0.59); Monocytes % (auto) 9.5 %; Neutrophils # (auto) 8.29 K/uL (1.40-6.50); Neutrophils % (auto) 81.1 %; Platelet Count 200 K/uL (130-400); RDW Standard Deviation 45.1 fL (36.4-46.3); Red Blood Count 4.64 M/uL (4.70-6.10); White Blood Count 10.22 K/ul (4.8-10.8)
[2022-05-20 07:34] LABS: Calcium 8.2 mg/dl (8.6-10.3); Potassium 4.1 mmol/L (3.5-5.1)
[2022-05-20 07:40] LABS: BUN Creatinine Ratio 23.1 (10-20); Creatinine Clr Calc Pharmacy 80.3 ml/min; Est GFR (African American) 94.5 ml/min; Est GFR (Non-African American) 81.6 ml/min
[2022-05-20] MEDS: DOCUSATE SODIUM 100 MG CAP PO SCH (07:48)
[2022-05-20] MEDS ORDERED: MULTIVITAMIN TAB PO SCH (09:00)
--- NOTE | 2022-05-20 10:57 | Orthopedic Progress Note ---
Date of Service May 20, 2022 Assessment & Plan (1) Primary osteoarthritis, right shoulder: Plan: Postoperative day #1 status post right anatomic total shoulder arthroplasty doing well. -Plan for discharge home today. Admission and Anticipated Discharge Date Admission Date: May 19, 2022 Subjective Patient resting comfortably in his chair. He denies any significant pain in his right shoulder. His nerve block seems to still be working. He still has some numbness in his hand. Physical Exam Physical Exam: Examination of the right shoulder reveals that his dressing is clean, dry, intact. Motor function is intact in the median, ulnar, and radial nerve distributions. He still has some numbness in the radial aspect of his hand. Results & Data Vital Signs (Past 12 Hours) Vital Signs Temp Pulse Pulse Resp BP Pulse Ox O2 Del Method 05/20/22 07:36 36.6 C 81 18 137/78 98 Room Air 05/20/22 02:44 36.5 C 97 H 18 130/76 94 Room Air 05/20/22 00:05 36.5 C 105 H 14 151/70 H 99 Room Air Laboratory Results H/H 14.2/41.6
--- NOTE | 2022-05-20 10:59 | Discharge Summary ---
Date of Service May 20, 2022 Admission HPI Per Admitting Provider Mr. Cabrera returns. Again, he is a 75-year-old duqoh-lxze-uijxppwk male with chronic right shoulder pain with gradual progressive worsening. He saw Dr. Spangler in mid-September, and was given a shoulder joint steroid injection for his arthritis. They discussed shoulder replacement surgery. He comes in today for second opinion evaluation of such. He reports that he is very active and lives alone. 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 He notes that after his injection, he got some short-term improvement in his pain, but nothing terribly significant. This pain is waking him up at night. He previously used to use anti-inflammatories fairly effectively, but eventually developed colitis related to diclofenac use, and had to stop. Is fairly healthy and very active. He denies significant medical problems. Principal Diagnosis Right shoulder primary glenohumeral joint arthritis Discharge Data Allergies Allergy/AdvReac Type Severity Reaction Status Date / Time vancomycin Allergy Severe N/V, Verified 05/19/22 11:44 altered mental status, fever, chills, sweats,hives mold Allergy Mild Rhinitis Verified 05/19/22 11:44 pollen extracts Allergy Mild Rhinitis Verified 05/19/22 11:44 tree and shrub pollen Allergy Mild Rhinitis Verified 05/19/22 11:44 procaine AdvReac Intermediate Tachycardia Verified 05/19/22 11:44 doxycycline AdvReac Unknown Severe sun Verified 05/19/22 11:44 sensitivity Procedures Performed Operation Date: 05/19/22 13:55 Actual Procedures p Right Shoulder Anatomic Total Shoulder Replacement, Open Biceps Tenodesis Repair, Open Acriomioplasty(Right) - Bhargav Santana M.D. Ordered Studies 05/19/22 05:00 [facility] Hospital Course (1) Primary osteoarthritis, right shoulder: Patient underwent a right anatomic total shoulder arthroplasty, and was admitted under the orthopedic surgery service postoperatively. Patient tolerated the procedure well and was transferred up to the orthopedic surgery floor in stable condition. Perioperative antibiotic coverage was initiated for 24 hours. DVT prophylaxis consisting of aspirin 325 mg daily was started the morning after surgery. On postoperative day 1, pain was well controlled with oral medications only. Patient was ambulating without assistance, tolerating a regular diet, and was therefore determined to be safe and ready for discharge to home. Total Time Total Time Spent Total Time Spent (In Minutes): 15 Discharge Plan Discharge Items Patient Disposition: Home - Self-Care Reason For Visit: Right Shoulder Arthritis Discharge Diagnosis: Right shoulder primary glenohumeral joint arthritis Activity: Per Instructions section Non-emergency contact: Surgeon Call non-emergency contact if: your pain is not controlled, your temperature is above 101.5, your wound has increased redness and your wound has increased drainage Follow-up/Referrals: Alma Montoya MD [Primary Care Provider] - Bhargav Santana M.D. [Physician] - Diet: Regular Addtl Attending Provider Instructions: Things to Watch Out For -Go to the Emergency Room if you have sudden onset of nausea, vomiting, chest pain, shortness of breath, or uncontrollable pain. -Call the clinic or go to the Emergency Room if you have a sudden increase in the amount of wound drainage or the drainage becomes thick, yellow or green, or foul-smelling. -For routine questions, call the clinic at [phone] during regular business hours (8am-5pm). For urgent issues after regular business hours, you may call [facility] clinic to be connected to the on-call physician. Dressings -A special waterproof, silver-impregnated dressing was placed on your shoulder. Keep this dressing in place for 1 week after surgery. You may shower with the waterproof dressing in place, but do not soak the dressing in the bathtub or pool. -One week after surgery, you may remove the waterproof dressing. You may continue to shower, and let water run BRIEFLY over the incision, but do not soak the incision in the bathtub or pool for 2 weeks. You may also gently clean the incision with mild soap and water; pat the incision dry after cleaning-do not rub the incision. Apply a new dressing daily thereafter. Shoulder Exercises -Keep your operative shoulder in the sling for comfort, except as detailed below. -You should come out of the sling 4-5 times a day for passive pendulum exercises: lean over and swing your arm in a circular pattern. -You should also do active-assisted forward flexion exercises: use your opposite hand to lift your operative arm forward to 90 degrees. -Do not flex your elbow (curl motion) or supinate your forearm (rotating palm up) against resistance. -Do not use your arm to push yourself up out of bed or up from a seated position. -Subscapularis repair: Do not externally rotate your arm past neutral rotation (forearm pointed straight out from your body) or internally rotate your arm (pull your forearm towards your body) against resistance. Do not abduct your shoulder past 90 degrees (bring your arm out to the side past shoulder level). Ice Pack -You may use an ice pack for pain relief. You should use it 20-30 minutes at a time. Place a towel between the ice pack and your skin to prevent frostbite. -You should use the ice pack fairly regularly for the first 1-2 weeks after surgery to help reduce pain and inflammation. -About 2 weeks after your surgery, you should start using heat to loosen up your shoulder prior to doing your stretching exercises, then use the cooling sleeve after your exercises are complete to reduce swelling and pain. Pain Medicines -Your prescriptions for pain medications have already been sent to the pharmacy on file at [facility]. -You have been prescribed an anti-inflammatory (Motrin/ibuprofen) and a non- narcotic pain medicine (Tylenol/acetaminophen). These are your primary pain medications. Take them each every 6 hours as instructed. It is recommended that you stagger these medicines every 3 hours (i.e. take ibuprofen at 8:00 am, then acetaminophen at 11:00 am, then ibuprofen at 2:00 pm, etc) -DO NOT take any additional anti-inflammatories (Advil, Aleve/naproxen, Mobic/meloxicam, Celebrex) or any additional Tylenol/acetaminophen products with these prescribed medications. -You have also been prescribed an additional narcotic pain medication (oxycodone). Take this medicine ONLY for breakthrough pain not controlled by the ibuprofen and acetaminophen. -Do not drive or operate heavy machinery while taking the narcotic medication. -Common side effects of narcotic pain medicines include itching, nausea, constipation, and feeling "loopy". However, if you develop a rash or hives, stop taking the medicine and call the clinic. If you develop swelling in your throat or difficulty breathing, go to the Emergency Room or call 911 IMMEDIATELY. -You may take over the counter stool softeners if needed for constipation. Aspirin -Take a full strength (325mg) aspirin every day for 4 weeks (28 days) to prevent blood clots. -If you were taking a baby aspirin (81mg) prior to surgery, you may resume taking this 81mg dose after you complete the 28-day course of the 325mg strength dose; do not take the 325mg dose in addition to your 81mg dose. -Be aware that you will bruise easier while taking Aspirin; this is normal. However, if you develop a significantly large area of swelling after an injury, or have a cut that will not stop bleeding, call the clinic or go to the Emergency Room immediately. Pending Studies at Discharge: No Stand-Alone Forms: My [facility] Medications and DC Order Prescriptions: Continued methylphenidate HCl [Concerta] 27 mg tablet extended release 24hr 27 mg PO QAM Qty: 30 0RF psyllium husk [Fiber (psyllium husk)] 0.4 gram capsule 0.4 g PO DAILY Qty: 30 0RF sildenafil 50 mg Tablet 50 mg PO DAILY PRN (Reason: Erectile Dysfunction) Rx Instructions: administer 30 minutes to 4 hours before activity Discontinued acetaminophen 500 mg Tablet 500 mg PO Q6H PRN (Reason: Pain) Discharge Orders: Discharge Order (Routine); Ordered 05/20/22 Ordered By: Bhargav Santana Admission Data Admit Date/Time: 05/19/22 16:18 Attending Provider: Bhargav Santana Admit Provider: Bhargav Santana Primary Care Provider: Alma Montoya
== END 2022-05-20 14:10 | disposition home or self-care (01) ==
LOC: 3E 11:03 → ASU 11:03

== ENCOUNTER 2023-03-12 10:59 | Inpatient (IN) ==
[2023-03-12 11:07] LABS: Basophils # (auto) 0.07 K/uL (0.00-0.20); Basophils % (auto) 0.8 %; Eosinophils # (auto) 0.12 K/uL (0.00-0.50); Eosinophils % (auto) 1.5 %; Hematocrit (blood only) 44.5 % (42.0-52.0); Hemoglobin 14.9 g/dl (14.0-18.0); Immature Granulocytes # (auto) 0.03 K/uL (0.01-0.20); Immature Granulocytes % (auto) 0.4 %; Lymphocytes % (auto) 18.2 %; Mean Corpuscular Hemoglobin 29.6 pg (25.0-34.0); Mean Corpuscular Hgb Conc 33.5 g/dL (32.0-36.0); Mean Corpuscular Volume 88.5 fL (80.0-100.0); Mean Platelet Volume 9.7 fL (9.4-12.4); Monocytes # (auto) 0.67 K/uL (0.11-0.59); Monocytes % (auto) 8.1 %; Neutrophils # (auto) 5.85 K/uL (1.40-6.50); Platelet Count 244 K/uL (130-400); RDW Coefficient of Variation 14.2 % (11.5-14.5); RDW Standard Deviation 45.7 fL (36.4-46.3); Red Blood Count 5.03 M/uL (4.70-6.10); White Blood Count 8.24 K/ul (4.8-10.8)
[2023-03-12] MEDS: TICAGRELOR 90 MG TAB PO ONE (11:08)
[2023-03-12 11:18] LABS: iSTAT Creatinine 1.1 mg/dl (0.6-1.3); iSTAT Hemoglobin 13.9 g/dl (14.0-18.0); iSTAT Ionized Calcium 1.19 mmol/l (1.12-1.32); iSTAT Potassium 4.3 mmol/L (3.3-5.0)
[2023-03-12 11:19] LABS: Partial Thromboplastin Ratio 0.9; Partial Thromboplastin Time 25 Seconds (21-31); Prothrombin Time 10.7 Seconds (9.0-12.0)
[2023-03-12 11:21] LABS: Albumin Level 4.5 gm/dl (3.4-5.0); Bilirubin,Total 0.5 mg/dl (0.2-1.0); Calcium 9.4 mg/dl (8.6-10.3); Potassium 3.9 mmol/L (3.5-5.1)
--- NOTE | 2023-03-12 11:25 | Emergency Department Note ---
Impression & Plan Acute NM, inferior wall, Acute NM, true posterior wall ED Provider Note NAME: REGLA LINTON AGE: 77 SEX: M : 1945 ARRIVES VIA: Ambulance INFORMANT: Patient, prehospital personnel ED PROVIDER(S): Reuben Meraz DO CHIEF COMPLAINT: Chest pain HPI: The patient is a 77-year-old male who presented to the emergency department for evaluation of chest pain. The patient states that yesterday he started noticing discomfort across his chin. He thought he was having dental pain. This pain was intermittent and did not last very long. The patient does have a history of high cholesterol. He has no history of coronary artery disease. He is a former [employer] employee. He states that he is in excellent health. The patient started having worsening of his pain in his jaw but then it started going into his chest and into his neck. He called 911. He took 5 baby aspirin prior to arrival. I was notified about the patient by the prehospital personnel. The patient was made a heart alert prior to arrival. The patient states his pain at this time is gone. He denies having any back pain or shortness of breath. ROS: See above HPI for pertinent positives & negatives. A total of 10 systems reviewed and were otherwise negative. PAST MEDICAL HISTORY: See Below PAST SURGICAL HISTORY: See Below FAMILY HISTORY: See Below SOCIAL HISTORY: See Below HOME MEDICATIONS: See Below ALLERGIES: See Below VITALS: See Below PHYSICAL EXAMINATION: GENERAL: Patient is awake alert in no acute distress patient is resting comfortably and showing no signs of anxiety EYES: The conjunctivae are clear. The pupils are round and reactive. EARS, NOSE, MOUTH AND THROAT: The nose is without any evidence of any deformity. Mucous membranes are moist. NECK: The neck is nontender and supple. RESPIRATORY: Normal respiratory effort is noted there is no evidence of wheezing rhonchi or rales CARDIOVASCULAR: Regular rate and rhythm noted there no murmurs rubs or gallops normal S1 normal S2. GASTROINTESTINAL: The abdomen is soft. Abdomen is nontender. MUSCULOSKELETAL/EXTREMITIES: There is no evidence of gross deformity full range of motion is noted in the hips and shoulders. SKIN: There is no obvious evidence of any rash. There are no petechiae, pallor or cyanosis noted. Pulses are symmetric in both wrist. NEUROLOGIC: Patient is awake alert and oriented x3 MEDICAL DECISION MAKING: The patient is a 77-year-old male who presented to the emergency department for chest pain. The patient is an excellent health for his age. He started having jaw pain yesterday that he thought was consistent with more of a dental issue. He started having radiation into his chest and into his neck today. He called 911. The patient arrived via ambulance. He was made a heart alert prior to arrival after his EKG was evaluated. The patient was treated with Brilinta in the emergency department. He took aspirin prior to arrival. The patient was evaluated at the bedside by the proofsheet corrector. I discussed his condition with the on-call [facility] hospitalist. The patient was pain-free but given his presentation as well as his presenting EKG he was felt to be a good candidate for the [facility]. He was agreeable to this plan. The patient was taken to the [facility]. He was initially hypertensive. Triage Nursing notes reviewed. Prior medical records reviewed Vital Signs: reviewed and remarkable for hypertension. Differential diagnosis: Cardiac ischemia, aortic dissection, pulmonary embolism, pneumothorax, pneumonia, pericarditis, myocarditis, esophageal rupture, GERD, cholecystitis, pancreatitis, musculoskeletal, as well as other pathologies. ER treatment provided: See below Diagnostics interpreted by me: ECG: EKG was obtained in the emergency department. My interpretation is sinus rhythm at 100 bpm. There is no ectopy. Inferior elevation with Q waves was noted in the inferior leads. There was also reciprocal changes noted in the high lateral leads. There is also ST depression with T wave inversion in the anterior leads. I do feel this is consistent with an acute inferior posterior wall NM. This was compared to a tracing from April 04, 2022. The ischemic changes are new compared to previous. Prehospital EKG was evaluated. My interpretation is sinus rhythm at 96 bpm. There is no ectopy. Acute ST elevation was noted in the inferior leads with depression in the high lateral and anterior leads. Again consistent with the EKG noted on arrival. Cardiac Monitoring: An order was placed for continuous cardiac monitoring. The monitor shows a rate of 97 bpm with sinus rhythm. Laboratory studies: As stated above and show below. Imaging studies: See below. Radiographic imaging was reviewed by myself Consultation(s): I discussed this case with Dr. Manuel who is on for interventional cardiology. I discussed this case with Dr. Guerrero who is on-call for the [facility] hospitalist group. ED COURSE: Procedures: none Critical Care: I have personally spent greater than 35 minutes of critical care time in the direct management of this patient. This includes bedside care, interpretation of diagnostic studies, and testing, discussion with consultants, patient, and family members, and other required patient management activities. This 35 minutes is in excess of all separately billable procedures. Past Med/Surg History Medical History Depression with anxiety Primary osteoarthritis, right shoulder Encounter for pre-operative examination History of skin cancer History of colitis ADHD BPH (benign prostatic hyperplasia) Gout Trigeminal neuralgia Hyperlipidemia Chronic pain Surgical History History of colonoscopy History of cataract surgery History of surgical removal of skin lesion S/P inguinal hernia repair History of open reduction and internal fixation (ORIF) procedure S/P revision of total knee History of total knee arthroplasty History of vasectomy Family History Father Diabetes Hypertension Mother Cancer Denies family history of Ovarian cancer Prostate cancer Myocardial infarction Breast cancer Social History Smoking Status: Never smoker Second Hand Exposure: No; Do You Dip or Chew Tobacco: No; Hx Alcohol Use: Yes Alcohol Intake Frequency: Monthly or Less Hx Substance Use: No Preferred Language: Japanese Communication Ability: Effective Hearing Ability: Use of Hearing Aid Senior Game Developer Required: No Beliefs That Will Affect Care: None marital status: Single Current Living Situation: Alone current occupational status: retired How many Children do You have: 0 Feels Safe at Home: Yes Childhood Exposure to Second-Hand Smoke: Yes Diet: regular caffeine: Yes (Coffee ) Dental Care, Regularly: Yes 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: 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 Use: always Sunscreen Use: Yes Assistive Devices: None Allergies Allergies Allergy/AdvReac Type Severity Reaction Status Date / Time vancomycin Allergy Severe N/V, Verified 02/15/23 15:53 altered mental status, fever, chills, sweats,hives mold Allergy Mild Rhinitis Verified 02/15/23 15:53 pollen extracts Allergy Mild Rhinitis Verified 02/15/23 15:53 tree and shrub pollen Allergy Mild Rhinitis Verified 02/15/23 15:53 procaine AdvReac Intermediate Tachycardia Verified 02/15/23 15:53 doxycycline AdvReac Unknown Severe sun Verified 02/15/23 15:53 sensitivity Home Meds Home Medications Medication Instructions Recorded Confirmed sildenafil 50 mg tablet 50 mg PO DAILY PRN Erectile 03/30/22 02/15/23 Dysfunction Previous Rx's Medication Instructions Recorded methylphenidate HCl 27 mg 27 mg PO QAM #30 tabs 11/01/21 tablet,extended release 24 hr (Concerta) psyllium husk 0.4 gram capsule 0.4 g PO DAILY #30 caps 11/01/21 (Fiber (psyllium husk)) tamsulosin 0.4 mg capsule 0.4 mg PO DAILY #30 caps 02/15/23 Results & Data (ED) Vital Signs Vital Signs - 24 hr 03/12/23 10:56 03/12/23 10:59 03/12/23 11:00 Temperature 36.7 C Temperature Source Oral Pulse Rate 102 H Pulse Rate from SpO2 Sensor Respiratory Rate 22 Respiratory Effort / Characteristics Non-Labored Spontaneous Respiratory Depth Normal Respiratory Pattern Regular Blood Pressure 165/102 H 175/133 H 165/106 H Blood Pressure Mean 123 149 127 Pulse Oximetry 98 Oxygen Delivery Method Room Air Sepsis Recent Fever Within 48 Hours No Sepsis New/Unexplained Change in Mental Status N/A Sepsis Action Taken by Nursing No Action Required 03/12/23 11:00 03/12/23 11:04 03/12/23 11:10 Temperature Temperature Source Pulse Rate 101 H 97 H Pulse Rate from SpO2 Sensor 101 H 96 H Respiratory Rate 18 Respiratory Effort / Characteristics Respiratory Depth Respiratory Pattern Blood Pressure Blood Pressure Mean Pulse Oximetry 98 98 Oxygen Delivery Method Sepsis Recent Fever Within 48 Hours Sepsis New/Unexplained Change in Mental Status Sepsis Action Taken by Nursing 03/12/23 11:12 Temperature Temperature Source Pulse Rate Pulse Rate from SpO2 Sensor Respiratory Rate Respiratory Effort / Characteristics Respiratory Depth Respiratory Pattern Blood Pressure Blood Pressure Mean Pulse Oximetry Oxygen Delivery Method Room Air Sepsis Recent Fever Within 48 Hours Sepsis New/Unexplained Change in Mental Status Sepsis Action Taken by Retirement Medications Current Medication List: was personally reviewed by me Laboratory Data Attestation: I reviewed the patient's lab results. 03/12/23 10:37 03/12/23 10:37 Lab Results 03/12/23 03/12/23 Range/Units 10:37 11:05 WBC 8.24 (4.8-10.8) K/ul RBC 5.03 (4.70-6.10) M/uL Hgb 14.9 (14.0-18.0) g/dl POC Hgb 13.9 L (14.0-18.0) g/dl Hct 44.5 (42.0-52.0) % POC Hct 41 L (42-52) % MCV 88.5 (80.0-100.0) fL MCH 29.6 (25.0-34.0) pg MCHC 33.5 (32.0-36.0) g/dL RDW Std Deviation 45.7 (36.4-46.3) fL RDW Coeff of Nitin 14.2 (11.5-14.5) % Plt Count 244 (130-400) K/uL MPV 9.7 (9.4-12.4) fL Immature Gran % (Auto) 0.4 % Neut % (Auto) 71.0 % Lymph % (Auto) 18.2 % Darke % (Auto) 8.1 % Eos % (Auto) 1.5 % Baso % (Auto) 0.8 % Neut # (Auto) 5.85 (1.40-6.50) K/uL Lymph # (Auto) 1.50 (1.20-3.40) K/uL Darke # (Auto) 0.67 H (0.11-0.59) K/uL Eos # (Auto) 0.12 (0.00-0.50) K/uL Baso # (Auto) 0.07 (0.00-0.20) K/uL Immature Gran # (Auto) 0.03 (0.01-0.20) K/uL PT 10.7 (9.0-12.0) Seconds INR 1.0 (0.9-1.1) APTT 25 (21-31) Seconds PTT Ratio 0.9 POC Sodium 140 (135-144) mmol/L Sodium 137 (136-145) mmol/L POC Potassium 4.3 (3.3-5.0) mmol/L Potassium 3.9 (3.5-5.1) mmol/L POC Chloride 103 (101-112) mmol/L Chloride 103 (98-107) mmol/L Carbon Dioxide 26 (21-32) mmol/L POC Total CO2 29 (24-31) mmol/L Anion Gap 8 (3-11) POC Anion Gap 14.0 L (16-25) mmol/L POC BUN 18 (7-18) mg/dl BUN 18 (6-23) mg/dl Creatinine 1.10 (0.6-1.4) mg/dl POC Creatinine 1.1 (0.6-1.3) mg/dl Est Cr Clr Drug Dosing 69.2 ml/min Est GFR ( Amer) 74.7 ml/min Est GFR (Non-Af Amer) 64.4 ml/min BUN/Creatinine Ratio 16.4 (10-20) Glucose 134 H (70-99(Fasting)) mg/dl POC Glucose (other) 133 H (70-99) mg/dl Calcium 9.4 (8.6-10.3) mg/dl POC Ioniz Calcium Anabella 1.19 (1.12-1.32) mmol/l Total Bilirubin 0.5 (0.2-1.0) mg/dl AST 47 H (13-39) U/L ALT 64 H (7-52) U/L Alkaline Phosphatase 107 H (34-104) U/L Troponin I High Sens 190.5 H* (0-20) pg/ml Total Protein 7.8 (6.0-8.3) gm/dl Albumin 4.5 (3.4-5.0) gm/dl Globulin 3.3 (2.5-4.0) gm/dl Albumin/Globulin Ratio 1.4 (0.9-2) Lipase 38 (11-82) U/L Administered Medications Discontinued Medications Ticagrelor (Ticagrelor 90 Mg Tab) 180 mg PO ONE ONE Stop: 03/12/23 11:07 Last Admin: 03/12/23 11:08 Dose: 180 mg Documented By: NDW Imaging Data Attestation: I personally reviewed and interpreted this imaging study as follows: My Impression: 1 view chest x-ray was obtained in the emergency department. My interpretation is no free air or definite infiltrate, final report below. Radiologist's Impression: Chest X-Ray 03/12/23 10:38 XR chest 1V portable CLINICAL HISTORY: Chest pain, nonspecific TECHNIQUE: Single frontal radiograph of the chest was obtained. Comparison: Comparison is made to chest radiograph 04/04/2022 FINDINGS: Right hip shoulder arthroplasty is seen. The cardiomediastinal silhouette is normal. The lungs are clear. No evidence of pleural effusion or pneumothorax. IMPRESSION: No acute chest disease. ACT 112: Negative or not required by law. Electronically signed by: Randy Khan M.D. 03/12/2023 11:22 AM Discharge Plan Visit Data Chief Complaint: Heart Alert ED Provider: Reuben Meraz Discharge Problem: Acute NM, inferior wall, Acute NM, true posterior wall Patient Disposition: Being Evaluated by Hospitalist Discharge Instructions Interventions: ED Discharge Assessment Last Done: 03/12/23 11:12
[2023-03-12 11:27] LABS: Albumin Globulin Ratio 1.4 (0.9-2); BUN Creatinine Ratio 16.4 (10-20); Creatinine Clr Calc Pharmacy 69.2 ml/min; Est GFR (African American) 74.7 ml/min; Est GFR (Non-African American) 64.4 ml/min; Globulin 3.3 gm/dl (2.5-4.0); Total Protein 7.8 gm/dl (6.0-8.3)
[2023-03-12 11:47] LABS: Troponin I High Sensitivity 190.5 pg/ml (0-20)
--- NOTE | 2023-03-12 13:28 | Pre Anesthesia Assessment ---
Date of Service March 12, 2023 Pre Sedation Assessment Vital Signs Temp Pulse Resp BP Pulse Ox O2 Del Method 03/12/23 11:12 Room Air 03/12/23 11:10 98 03/12/23 11:04 97 H 03/12/23 11:00 101 H 18 98 03/12/23 11:00 165/106 H 03/12/23 10:59 175/133 H 03/12/23 10:56 36.7 C 102 H 22 165/102 H 98 Room Air Cardiovascular RRR, no murmur, no edema Respiratory normal respiratory effort, lungs clear to auscultation Pre-Sedation Airway Assessment Smoking Status: Never smoker MALLAMPATI 3 ASA 4 Notes The planned sedation has been discussed with the patient. Informed Consent was obtained. I have identified the patient, determined the appropriateness of sedation and have assessed the patient immediately prior to the procedure. All medicine(s) and interventions are by my order.
--- NOTE | 2023-03-12 13:31 | Post Anesthesia Assessment ---
Date of Service March 12, 2023 Post Sedation Assessment Vital Signs Temp Pulse Resp BP Pulse Ox O2 Del Method 03/12/23 11:12 Room Air 03/12/23 11:10 98 03/12/23 11:04 97 H 03/12/23 11:00 101 H 18 98 03/12/23 11:00 165/106 H 03/12/23 10:59 175/133 H 03/12/23 10:56 36.7 C 102 H 22 165/102 H 98 Room Air Recovery Score Activity: Moves 4 extremities Respiration: Deep Breath/Cough Circulation: +/-20% PreAnes Value Consciousness: Fully Awake Oxygen Saturation: > 92% On Room Air Discharge Sedation Level of Care: Fast Track Phase II Post Sedation Plan On clinical assessment, the patient appears to have tolerated the sedation without complications. Patient is recovering as anticipated. Patient will continue to be monitored by nursing and may be discharged when sedation discharge criteria are met per below protocol. Upon Completions of procedure up to 15 minutes continue every 5 minute vital signs and the P.A.R. score; then discharge to a Phase I or Fast Track to Phase II per the following guidelines: * Discharge Patient to appropriate Phase II area if PAR is 8 or greater or return to pre- procedure baseline. The post - procedure orders will be as directed. * If PAR score is less than 8 or not return to pre-procedure baseline then patient will follow Phase I monitoring till PAR is reached for Phase II. The Phase I may be done in procedure room or may call to secure a Phase I area. * If naloxone or flumazenil are used for reversal, hold in Phase I for continued monitoring from when last reversal dose was given for a minimum of 60 minutes or longer pending the nurse and/or physician discretion of patient condition before discharge to Phase II. Please call the Sedation Physician to re-evaluate and complete post-note for discharge to Phase II area. Do NOT discharge from procedure sedation or Phase 1 until post- sedation evaluation note is complete by procedure /sedation MD Sedation Discharge Instructions to be given to the patient at discharge to home. [facility] Procedure Codes (Charges) Indication for Procedure Indication for procedure: ACUTE INFERIOR STEMI Sedation/Anesthesia Procedure 1: Sedation/Anesthesia: 78435 Mod Sedation by the same physician;Init15 Min Child Age 5 & Up (Initial 15 min, start 1123) Total Sedation Time (minutes): 96 Procedure 2: Sedation/Anesthesia: 15346 Mod Sedation by the same physician; Ea [id number] Minutes (Additional 81 min, END 1259) Total Sedation Time (minutes): 96
--- NOTE | 2023-03-12 14:32 | History & Physical Report ---
Date of Service March 12, 2023 Assessment & Plan (1) STEMI (ST elevation myocardial infarction): Plan: Aspirin initial dose taken pre-hospital, continue 81mg PO daily Brilinta loaded in the ER, continue 90mg PO BID Start metoprolol tartrate 25mg PO BID Aim O2 > 94% IV heparin as ordered by cardiology (2) Hyperlipidemia: Plan: Repeat lipid panel with AM labs Start atorvastatin 40mg PO daily (3) Benign localized prostatic hyperplasia with lower urinary tract symptoms (LUTS): Plan: Continue tamsulosin as long as BP stable after starting on metoprolol (4) ADHD: Plan: Hold Concerta in setting of STEMI (5) Acute CO, inferior wall: Plan VTE prophylaxis - IV heparin Diet - heart healthy Disposition - admit to ICU Admission and Anticipated Discharge Date Admission Date: March 12, 2023 History of Present Illness Chief Complaint: Chest pain Primary Care Provider: Alma Montoya MD Ewelina davies is a 77 year old male who presents to the ER with chest pain. He reports having jaw/chin pain yesterday lasting for 15 minutes at rest. This morning the same pain occurred but with a chest tightness severity 4/10, associated shortness of breath. Pain started at 8:30 AM and lasted approximately 40 minutes. He is no longer having pain in the emergency room. No associated nausea or dizziness. He has no prior cardiac history. After this pain occurred he called his friend who recommended he takes 81 mg aspirin x4 and called for an ambulance. Prehospital EKG showed ST elevations in inferior leads and the patient was a heart alert in the emergency room. Patient was briefly seen precardiac cath and reviewed in the ICU postcardiac cath. Allergies Allergy/AdvReac Type Severity Reaction Status Date / Time vancomycin Allergy Severe N/V, Verified 02/15/23 15:53 altered mental status, fever, chills, sweats,hives mold Allergy Mild Rhinitis Verified 02/15/23 15:53 pollen extracts Allergy Mild Rhinitis Verified 02/15/23 15:53 tree and shrub pollen Allergy Mild Rhinitis Verified 02/15/23 15:53 procaine AdvReac Intermediate Tachycardia Verified 02/15/23 15:53 doxycycline AdvReac Unknown Severe sun Verified 02/15/23 15:53 sensitivity Home Medications Medication Instructions Recorded Confirmed Type methylphenidate HCl 27 mg 27 mg PO QAM #30 tabs 11/01/21 02/15/23 Rx tablet,extended release 24 hr (Concerta) psyllium husk 0.4 gram capsule 0.4 g PO DAILY #30 caps 11/01/21 02/15/23 Rx (Fiber (psyllium husk)) sildenafil 50 mg tablet 50 mg PO DAILY PRN Erectile 03/30/22 02/15/23 History Dysfunction tamsulosin 0.4 mg capsule 0.4 mg PO DAILY #30 caps 02/15/23 02/15/23 Rx Past Med/Surg History Medical History Depression with anxiety Primary osteoarthritis, right shoulder Encounter for pre-operative examination History of skin cancer History of colitis Hx microscropic colitis (~), 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 but was then later told it was a "false positive"- no current issues/"resolved" ADHD BPH (benign prostatic hyperplasia) No medications Gout Hx (single episode) Trigeminal neuralgia Hx, no recent issues Hyperlipidemia No current medications Chronic pain Surgical History History of colonoscopy History of cataract surgery R/L History of surgical removal of skin lesion thumb area S/P inguinal hernia repair right History of open reduction and internal fixation (ORIF) procedure right forearm with hardware S/P revision of total knee left knee History of total knee arthroplasty Left knee History of vasectomy Family History Father Diabetes Hypertension Mother Cancer Denies family history of Ovarian cancer Prostate cancer Myocardial infarction Breast cancer Social History Smoking Status: Never smoker Second Hand Exposure: No; Do You Dip or Chew Tobacco: No; Hx Alcohol Use: Yes Alcohol Intake Frequency: Monthly or Less Hx Substance Use: No Preferred Language: Macanese Communication Ability: Effective Hearing Ability: Use of Hearing Aid Log Preparer Required: No Beliefs That Will Affect Care: None marital status: Single Current Living Situation: Alone current occupational status: retired How many Children do You have: 0 Feels Safe at Home: Yes Childhood Exposure to Second-Hand Smoke: Yes Diet: regular caffeine: Yes (Coffee ) Dental Care, Regularly: Yes 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: 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 Use: always Sunscreen Use: Yes Assistive Devices: None Review of Systems Review of Systems: All systems reviewed & are unremarkable except as noted in HPI & below Physical Exam Constitutional: WD/WN, vitals as above ENMT: external ear and nose normal, oropharynx normal Respiratory: normal respiratory effort, lungs clear to auscultation Cardiovascular: RRR, no murmur, no edema Gastrointestinal (Abdomen): normal bowel sounds, soft, nontender, no hep atosplenomegaly Skin: no rashes, warm and dry Psychiatric: A+Ox3, euthymic affect Results & Data Results & Data Vital Signs (Past 12 Hours) Vital Signs Temp Pulse Resp BP Pulse Ox O2 Del Method 03/12/23 11:12 Room Air 03/12/23 11:10 98 03/12/23 11:04 97 H 03/12/23 11:00 101 H 18 98 03/12/23 11:00 165/106 H 03/12/23 10:59 175/133 H 03/12/23 10:56 36.7 C 102 H 22 165/102 H 98 Room Air Laboratory Results Abnormal lab results 03/12/23 03/12/23 Range/Units 10:37 11:05 POC Hgb 13.9 L (14.0-18.0) g/dl POC Hct 41 L (42-52) % Bland # (Auto) 0.67 H (0.11-0.59) K/uL POC Anion Gap 14.0 L (16-25) mmol/L Glucose 134 H (70-99(Fasting)) mg/dl POC Glucose (other) 133 H (70-99) mg/dl AST 47 H (13-39) U/L ALT 64 H (7-52) U/L Alkaline Phosphatase 107 H (34-104) U/L Troponin I High Sens 190.5 H* (0-20) pg/ml Diagnostic Findings XR chest 1V portable CLINICAL HISTORY: Chest pain, nonspecific TECHNIQUE: Single frontal radiograph of the chest was obtained. Comparison: Comparison is made to chest radiograph 04/04/2022 FINDINGS: Right hip shoulder arthroplasty is seen. The cardiomediastinal silhouette is normal. The lungs are clear. No evidence of pleural effusion or pneumothorax. IMPRESSION: No acute chest disease. Medications Administered ER medications given: Brilinta 180 mg p.o. ECG Rate (beats per minute): 100 Rhythm: normal sinus Findings: + ST elevation (Inferior) Comparison ECG Date: from (April 04, 2022) Change: the following changes noted (Inferior ST elevations are new) Code Status & VTE Plan Code Status Full VTE Prophylaxis Plan VTE Prophylaxis will be ordered: Yes PG Care Time/CCT Total # of Minutes Spent Total Time Spent with Patient: Total time spent is greater than 50% in coordination of care (as documented) at patient's floor/unit and/or counseling patient: Coding Level of Care Code 69872 INT INP/OBS CARE MIN Diagnoses STEMI (ST elevation myocardial infarction) I21.3 Mixed hyperlipidemia E78.2 Hyperlipidemia type: mixed hyperlipidemia Benign localized prostatic hyperplasia with lower urinary tract symptoms (LUTS) N40.1 Attention deficit hyperactivity disorder (ADHD), unspecified ADHD type F90.9 Attention deficit-hyperactivity disorder type: unspecified Acute CO, inferior wall I21.19 (2) Hyperlipidemia Hyperlipidemia type: mixed hyperlipidemia Qualified Code(s): E78.2 - Mixed hyperlipidemia (4) ADHD Attention deficit-hyperactivity disorder type: unspecified Qualified Code(s): F90.9 - Attention-deficit hyperactivity disorder, unspecified type
[2023-03-12] MEDS: ICU Protocol for HYPERglycemia SCH (15:20)
[2023-03-12] MEDS: Heparin IV Adult Wt-Based Standard *NO* INITIAL Bolus Protocol IV SCH (15:20)
[2023-03-12] MEDS: ATORVASTATIN 40 MG TAB PO SCH (15:21)
--- NOTE | 2023-03-12 16:23 | Cardiac Catheterization ---
[facility] Data: Director Of Diagnostic Imaging Cardiac Status Clinical evaluation leading to the procedure CAD Presenation: STEMI Anginal Classification: CCS IV Heart Failure: No Cardiogenic Shock within 24 Hours: No Cardiac Arrest within 24 Hours: No Imaging Studies Past 6 Months: No Stress Studies Past 6 Months: No Coronary Anatomy Dominant: Right Left Main (% Stenosis): Distal (20%) LAD (% Stenosis): Normal D1 (% Stenosis): Normal D2 (% Stenosis): Normal Circumflex (% Stenosis): Normal RCA (% Stenosis): Proximal (Moderate calcification, max stenosis 90 to 95%) and Mid (Thrombus) R PDA (% Stenosis): Normal R PL1 (% Stenosis): Normal Ramus (% Stenosis): Normal Diagnostic Physicians Name: Danish Manuel MD, PhD Closure Device Percutaneous Entry Location: Initial radial, then femoral Closure Device: Angio-Seal Recommendations: Medical Therapy and/or Counseling and PCI without planned CABG PCI Indication: PCI for STEMI - Stable First Noted: First EKG Reason For Delay in PCI:: Difficulty crossing culprit lesion Lesion Segment Name: Proximal RCA Culprit Artery: Yes Stenosis Prior to Rx (%): 90 to 95% Pre-Procedure MISTY Flow: 1 Previously Treated Lesion: No Lesion Length (mm): 8 Thrombus Present: Yes Bifurcation Lesion: No Guidewire Across Lesion: Yes Intraprocedure Events Significant Disection: No Perforation: No Cardiac Cath Procedure Full Procedure Date March 12, 2023 Pre-Procedure Diagnosis Pre-Procedure Diagnosis: STEMI AUC Score AUC Score: 09 Post-Procedure Diagnosis Post-Procedure Diagnosis: Severe CAD and Successful PCI Procedure(s) Performed Procedure(s) Performed: Coronary Angiography, PTCA (Proximal RCA) and Ultrasound Guided Vascular Access Certified Recreational Therapist Danish Manuel MD, PhD Estimated Blood Loss Estimated Blood Loss: 15 mL Medication(s) Medication(s): Diphenhydramine, Fentanyl, Heparin, Lidocaine 1%, Nicardipine, Nitroglycerin and Versed Summary of Findings Brief description: Patient was brought to the cardiac catheterization suite where he was shaved and prepped in a sterile fashion. Sedated using IV Versed and fentanyl. Soft tissues of the right wrist were anesthetized using 2 mL of 1% Xylocaine. The right radial artery was accessed with a modified Seldinger technique and a 6 Qatari radial artery glide sheath was placed. All catheters were advanced and exchanged over a 0.035 J-tip wire. Patient was provided anticoagulation with IV heparin and antispasmodics including nicardipine and nitroglycerin. Right coronary angiography was performed in orthogonal views with a 5 Qatari Trent 4 diagnostic catheter. Left coronary angiography was performed in orthogonal views with a 5 Qatari JL 4 diagnostic catheter. Diagnostic catheters were removed and we proceeded immediately to PCI. A 6 Qatari JR4 guide catheter was used to engage the RCA. BMW reversal guidewire was advanced and positioned distal to the lesion in the RCA. Lesion was predilated using a 2.5 x 8 mm trek balloon up to 17 gabbie. We attempted to advance a 3.25 x 15 mm sera point drug-eluting stent across the lesion but the geometry was unfavorable. The sera point stent was then removed. A guide liner support catheter was advanced over the wire. A 3.0 x 8 mm trek balloon was advanced and positioned across the lesion. Predilatation at 14 gabbie, with repositioning and attempts at 8 gabbie, 8 gabbie, and finally at 12 gabbie. Balloon was removed. Java Performance Engineer angiography was performed. The guide liner was reinserted. The sera point stent was reinserted but could not be delivered across the lesion. We in fact had a lot of difficulty even moving the stent back from the lesion. Stent was removed and on inspection was found to be significantly damaged. Decision was made to abandon further attempts from the radial artery approach. Guide liner and guide catheter were removed. Soft tissues of the right groin were anesthetized using 10 mL of 1% Xylocaine. Using the ultrasound for guidance, the right femoral artery was accessed and a 6 Qatari femoral artery sheath was placed. All catheters were advanced and exchanged over a 0.035 J-tip wire. Noted significant tortuosity in the abdominal and thoracic aorta. 6 Qatari JR4 guide catheter was attempted to engage the right coronary but the geometry remained poor. Therefore, it was exchanged for a 6 Qatari R BU 3.5 guide catheter. BMW reversal guidewire was advanced through the guide catheter and positioned distally in the RCA. Shockwave 3.0 x 12 mm intracoronary lithotripsy system was then attempted to cross the lesion. This was unsuccessful. Catheter was removed. Guide liner catheter was advanced. The shockwave system was reinserted but unfortunately could not cross the lesion. It was therefore removed. We again attempted to advance a stent. A Skypoint 3.0 x 12 mm drug-eluting stent was advanced but could not get beyond the lesion despite the use of the guide liner and multiple attempts. Because the patient had received significant contrast as well as radiation decision was made to perform angioplasty only at this time. A 3.0 x 8 mm NC trek balloon was advanced and positioned across the lesion where it was inflated to 20 gabbie. The balloon was removed and angiography was performed. This showed some improvement in flow and stenosis. Trek balloon was removed. The guide liner was removed. The guidewire was removed and final angiographic evaluation was performed. Guide catheter was removed. Limited right femoral artery angiography was performed to evaluate for closure. The findings were suboptimal but the diameter of the vessel was such that we felt we could proceed with closure. Therefore, the 6 Qatari sheath was exchanged for a 6 Qatari Angio-Seal closure device. This was deployed in the recommended fashion. We obtained immediate hemostasis and the patient remained hemodynamically stable without symptoms. He was then admitted to the ICU for further workup and management. This ended the case. Coronary angiography findings: RCA-this is large caliber with a ostium arising low on the right coronary cusp and an sharp upward angle of the vessel in its proximal segment. There is significant curvature the apex of which has a calcified lesion appearing 90 to 95% with thrombus associated with that. The proximal and mid RCA have at least moderate circumferential calcium. Mid RCA has additional thrombus. Distal RCA remains large in caliber bifurcating into the PDA and posterolateral branches. The distal RCA and these branches have mild less than 10% luminal irregularities. There is MISTY I flow in the RCA. [id number]-ambgmyf with mild calcification. Distal stenosis appears to be less than 20 to 30%. Vessel trifurcates into LAD, circumflex, and ramus. PXH-nzpld-fwvtvas and wraps the apex. First diagonal is small in caliber with the second diagonal being medium and multi branching. There is also a large septal trunk. Proximal and mid LAD have no angiographically significant disease. The distal vessel and diagonal branches are also without significant disease. Shiqe-zxjtq-lzmujsb and multi branching. Appears to share the ostium of the circumflex. There is diffuse mild disease of less than 20%. LCx-medium caliber and nondominant. Runs in the AV groove and then terminates as a small posterolateral branch distally. No angiographically significant disease. PTCA of proximal RCA- Proximal lesion with residual 50 to 60% stenosis. Mid vessel with mild residual thrombus. There is MISTY-3 flow post PTCA. No evidence of significant dissection or perforation post PTCA Summary: 1. Severe occlusive coronary disease of the proximal RCA with thrombus and significantly reduced flow. This is the culprit lesion for inferior ST elevation SD. 2. Patient's right coronary anatomy and calcification made this a very difficult PCI. Unable to deliver stents today but we did have significant improvement in MISTY flow and modest improvement in lesion stenosis. 3. Patient was started on aspirin 81 mg daily and Brilinta 90 mg p.o. twice daily. He will also remain on heparin drip for the next 48 hours. 4. We will initiate guideline directed medical therapy for secondary prevention of coronary disease including; low-dose aspirin, high intensity statin therapy, beta-jesus, plus or minus EMMANUEL inhibitor/ARB. 5. We will consider reattempt of stent implantation at this facility versus referral to a tertiary center given the availability of cardiac surgical backup for this difficult case and a wider range of equipment options to improve likelihood of successful stent implantation. Hemodynamics Rest Ao:: 118/86 mmHg Final Ao: 144/81 mmHg LV: Not performed Recommendations Recommendations: Medical Therapy and/or Counseling and PCI without planned CABG Radiation Exposure (mGy) 4313 mGy, fluoroscopy time 27.7 minutes Contrast (mls) 232 mL Anesthesia 4 mg IV Versed, 125 mcg IV fentanyl Procedural Complication(s) None Disposition ICU I attest to the content of the Intraoperative Record and any orders documented therein. Any exceptions are noted below. [facility] [place] Procedure Codes Cardiac Catheterization Procedure 1: Cardiovascular Cath Procedures: 79445 Coronaries Therapeutic Services & Ancillary Procedure 1: Cardiovascular Tx and Anc Procedures: 20276 Ultrasonic Guidance Vascular Access Moderate Sedation Procedure 1: Sedation/Anesthesia: 41590 Mod Sedation by the same physician;Init15 Min Child Age 5 & Up (Initial 15 min, start 1123) Procedure 2: Sedation/Anesthesia: 17565 Mod Sedation by the same physician; Ea [id number] Minutes (Additional 81 min, End 1259) Angioplasty Procedure 1: Cardiovascular Angioplasty Procedures: 76971 PTCA; Single mafor coronary artery or branch RC LC LD (RCA) PG Care Time/CCT Total # of Minutes Spent Total Time Spent with Patient: Total time spent is greater than 50% in coordination of care (as documented) at patient's floor/unit and/or counseling patient:
--- NOTE | 2023-03-12 16:38 | Cardiology Consultation ---
Date of Consultation March 12, 2023 Assessment & Plan (1) STEMI (ST elevation myocardial infarction): Very difficult lesion to intervene upon. Difficult anatomy and sufficient calcification to prevent easy passage of stenting. In fact, one of the stents became quite damaged in attempting to cross the lesion. Fortunately, we were able to abort ongoing ischemic issues and improve his coronary flow with PTCA. He will remain on dual antiplatelet therapy with aspirin 81 mg daily and Brilinta 90 mg p.o. twice daily. We are also going to continue heparin drip as there was almost certainly some endothelial layer damage in attempting to cross the lesion and with PTCA. We will consider special order of additional catheters which may help us cross the lesion although it may be most prudent to transfer him to tertiary center so that there is cardiac surgical backup available should there be any complications in attempting PCI on this difficult lesion. They may also have additional modalities not available here which may be helpful. In the meantime, we will obtain an echocardiogram and follow his cardiac troponins to see if there is been significant injury. (2) Coronary artery disease: Severe right coronary disease with difficult anatomy. Successful PTCA. Curre ntly asymptomatic. Initiate guideline directed medical therapy for secondary prevention including aspirin 81 mg daily, a atorvastatin 40 mg daily, and metoprolol tartrate 25 mg p.o. twice daily. We will see how he responds to this and make additional recommendations. Awaiting echo which may have some bearing on titration of his medications. 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 High intensity statin therapy has been initiated with a atorvastatin 40 mg daily. Target LDL reduction is greater than or equal to 50% of untreated baseline LDL. We will need to obtain a fasting lipid panel in the morning. (4) Benign essential hypertension: Blood pressure was elevated preprocedure. We are starting metoprolol to tartrate 25 mg p.o. twice daily. Can utilize hydralazine 10 mg IV every 4 hours as needed if his systolic blood pressure goes above 150 mmHg. Further titration as his clinical course evolves. History of Present Illness Reason for Consultation: ST elevation AL Attending Physician: Renzo Guerrero MD History of Present Illness 77-year-old male presented after developing jaw and teeth pain yesterday lasting for many hours. He brushed his teeth and "used the Waterpik" thinking that that might relieve his symptoms and he says things got better. However, today he had a recurrence of the symptoms although the jaw discomfort was less intense but he did notice some chest pain and back pain. EMS arrived at his home and initial EKG suggested ongoing inferior ST elevation AL. He received aspirin, etc. and it was transported to the emergency department. On arrival in emergency department his symptoms had resolved. EKG showed residual inferior ST elevations, some reciprocal ischemic changes and large inferior Q waves. I was called to see him and he was doing well on my arrival. We discussed the EKG findings and his presenting symptoms. We also discussed risk factors or prior cardiac history of which he denied any. I recommended definitive evaluation by coronary angiography and he agreed. He was therefore taken emergently to the cardiac catheterization suite where he underwent coronary angiography. There was severe proximal RCA stenosis which was very difficult to treat but we were able to improve his coronary flow and reduce the severe lesion with angioplasty. He is now admitted to the ICU for continued heparin drip and initiation of appropriate therapy. Patient denied any ongoing chest pain at the time of my arrival. He also denied any shortness of breath. No preceding exertional chest pain or shortness of breath before his current symptom onset. He denies syncope, near syncope, orthopnea, PND, racing heartbeat, palpitations, or edema. He states that he has generally been very active and had this not has significant medical problems. He does have BPH and was started on tamsulosin recently. He tells me that he noticed this year his activity level and energy dropped. He voices no other complaints or concerns at this time. Allergies Allergy/AdvReac Type Severity Reaction Status Date / Time vancomycin Allergy Severe N/V, Verified 02/15/23 15:53 altered mental status, fever, chills, sweats,hives mold Allergy Mild Rhinitis Verified 02/15/23 15:53 pollen extracts Allergy Mild Rhinitis Verified 02/15/23 15:53 tree and shrub pollen Allergy Mild Rhinitis Verified 02/15/23 15:53 procaine AdvReac Intermediate Tachycardia Verified 02/15/23 15:53 doxycycline AdvReac Unknown Severe sun Verified 02/15/23 15:53 sensitivity Home Medications Medication Instructions Recorded Confirmed Type methylphenidate HCl 27 mg 27 mg PO QAM #30 tabs 11/01/21 02/15/23 Rx tablet,extended release 24 hr (Concerta) psyllium husk 0.4 gram capsule 0.4 g PO DAILY #30 caps 11/01/21 02/15/23 Rx (Fiber (psyllium husk)) sildenafil 50 mg tablet 50 mg PO DAILY PRN Erectile 03/30/22 02/15/23 History Dysfunction tamsulosin 0.4 mg capsule 0.4 mg PO DAILY #30 caps 02/15/23 02/15/23 Rx Patient History Medical History Depression with anxiety Primary osteoarthritis, right shoulder Encounter for pre-operative examination History of skin cancer History of colitis Hx microscropic colitis (~), 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 but was then later told it was a "false positive"- no current issues/"resolved" ADHD BPH (benign prostatic hyperplasia) No medications Gout Hx (single episode) Trigeminal neuralgia Hx, no recent issues Hyperlipidemia No current medications Chronic pain Surgical History History of colonoscopy History of cataract surgery R/L History of surgical removal of skin lesion thumb area S/P inguinal hernia repair right History of open reduction and internal fixation (ORIF) procedure right forearm with hardware S/P revision of total knee left knee History of total knee arthroplasty Left knee History of vasectomy Family History Father Diabetes Hypertension Mother Cancer Denies family history of Ovarian cancer Prostate cancer Myocardial infarction Breast cancer Social History Smoking Status: Never smoker Second Hand Exposure: No; Do You Dip or Chew Tobacco: No; Hx Alcohol Use: Yes Alcohol Intake Frequency: Monthly or Less Hx Substance Use: No Preferred Language: [place] Communication Ability: Effective Hearing Ability: Use of Hearing Aid Box Lining Machine Feeder Required: No Beliefs That Will Affect Care: None marital status: Single Current Living Situation: Alone current occupational status: retired How many Children do You have: 0 Other Information That Helps Us Care for You: No Feels Safe at Home: Yes Safety Concerns: Feels Safe At This Time Childhood Exposure to Second-Hand Smoke: Yes Diet: regular caffeine: Yes (Coffee ) Dental Care, Regularly: Yes 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: 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 Sclera are anicteric. ENMT: Oral mucosa is pink moist and intact Neck: No JVD or bruits appreciated Respiratory: Clear to auscultation bilaterally. No wheezing, rhonchi, or rales. Cardiovascular: Regular rate and rhythm. S4 gallop. I do not appreciate any rubs or murmurs. No edema. Musculoskeletal: no cyanosis or clubbing, extremities motor strength 5/5 Neurologic: Cognition is intact. Speech is fluent. Significantly diminished hearing. No focal motor deficits. No tremor. Psychiatric: A+Ox3, euthymic affect Results & Data Vital Signs (Past 12 Hours) Vital Signs Temp Pulse Pulse Resp BP BP Pulse Ox 03/12/23 14:45 70 15 100 03/12/23 14:45 150/93 H 03/12/23 14:30 148/80 H 03/12/23 14:30 78 22 93 03/12/23 14:15 140/80 03/12/23 14:15 65 17 97 03/12/23 14:10 03/12/23 14:00 122/74 03/12/23 14:00 65 17 100 03/12/23 13:45 67 17 99 03/12/23 13:45 126/83 03/12/23 13:42 03/12/23 13:38 36.8 C 68 20 127/80 98 03/12/23 13:30 136/86 03/12/23 13:30 75 16 98 03/12/23 13:25 75 20 91 03/12/23 13:25 127/80 03/12/23 13:23 03/12/23 13:23 36.8 C 68 20 127/80 98 03/12/23 11:12 03/12/23 11:10 98 03/12/23 11:04 97 H 03/12/23 11:00 101 H 18 98 03/12/23 11:00 165/106 H 03/12/23 10:59 175/133 H 03/12/23 10:56 36.7 C 102 H 22 165/102 H 98 Pulse Ox O2 Del Method O2 Del Method 03/12/23 14:45 03/12/23 14:45 03/12/23 14:30 03/12/23 14:30 03/12/23 14:15 03/12/23 14:15 03/12/23 14:10 99 Room Air 03/12/23 14:00 03/12/23 14:00 03/12/23 13:45 03/12/23 13:45 03/12/23 13:42 Room Air 03/12/23 13:38 Room Air 03/12/23 13:30 03/12/23 13:30 03/12/23 13:25 03/12/23 13:25 03/12/23 13:23 Room Air 03/12/23 13:23 Room Air 03/12/23 11:12 Room Air 03/12/23 11:10 03/12/23 11:04 03/12/23 11:00 03/12/23 11:00 03/12/23 10:59 03/12/23 10:56 Room Air PG Care Time/CCT Total # of Minutes Spent Total Time Spent with Patient: Total time spent is greater than 50% in coordination of care (as documented) at patient's floor/unit and/or counseling patient: Critical Care Time: Yes Total Critical Care Time: 50 A total of 50 minutes critical care time was used in the initial evaluation, review of records, physical exam, discussion with the patient, discussion with the care team in the emergency department as well as the inpatient team. This time was also used for formulation and implementation of plan of care and all associated documentation. This time is exclusive of the time spent on the procedure. Coding Level of Care Code 79865 CRITICAL CARE 1ST 30-74M Diagnoses STEMI (ST elevation myocardial infarction) I21.3 Coronary artery disease I25.10 Atherogenic dyslipidemia E78.5 Benign essential hypertension I10 Additional Codes Critical Care Time - Critical Care Time: Yes ([id number]) Time Spent (min) 50
--- NOTE | 2023-03-12 17:46 | Critical Care Consultation ---
Date of Consultation March 12, 2023 Assessment & Plan (1) Coronary artery disease: (2) Acute WA, inferior wall: Plan Continue routine post WA care. Heparin infusion, beta-jesus, EMMANUEL inhibitor and statin per cardiology. History of Present Illness Reason for Consultation: Post STEMI monitoring Attending Physician: Renzo Guerrero MD History of Present Illness 77-year-old female who presented to the ER with chest pain radiating to jaw and lasting for several hours. She presented to the ER which revealed an inferior ST elevation WA. Left heart cath performed today reveals severe occlusive coronary disease in the proximal RCA with thrombus. Balloon angioplasty was performed. Stent was unable to be placed. Patient currently monitored in the ICU.Patient without acute complaints. Patient on IV heparin, Brilinta and aspirin. Allergies Allergy/AdvReac Type Severity Reaction Status Date / Time vancomycin Allergy Severe N/V, Verified 02/15/23 15:53 altered mental status, fever, chills, sweats,hives mold Allergy Mild Rhinitis Verified 02/15/23 15:53 pollen extracts Allergy Mild Rhinitis Verified 02/15/23 15:53 tree and shrub pollen Allergy Mild Rhinitis Verified 02/15/23 15:53 procaine AdvReac Intermediate Tachycardia Verified 02/15/23 15:53 doxycycline AdvReac Unknown Severe sun Verified 02/15/23 15:53 sensitivity Home Medications Medication Instructions Recorded Confirmed Type psyllium husk 0.4 gram capsule 0.4 g PO DAILY #30 caps 11/01/21 03/13/23 Rx (Fiber (psyllium husk)) sildenafil 50 mg tablet 50 mg PO DAILY PRN Erectile 03/30/22 03/13/23 History Dysfunction tamsulosin 0.4 mg capsule 0.4 mg PO DAILY #30 caps 02/15/23 03/13/23 Rx atomoxetine 40 mg capsule 40 mg PO DAILY 03/13/23 03/13/23 History atorvastatin 20 mg tablet 20 mg PO DAILY 03/13/23 03/13/23 History Patient History Medical History Depression with anxiety Primary osteoarthritis, right shoulder Encounter for pre-operative examination History of skin cancer History of colitis Hx microscropic colitis (~), 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 but was then later told it was a "false positive"- no current issues/"resolved" ADHD BPH (benign prostatic hyperplasia) No medications Gout Hx (single episode) Trigeminal neuralgia Hx, no recent issues Hyperlipidemia No current medications Chronic pain Surgical History History of colonoscopy History of cataract surgery R/L History of surgical removal of skin lesion thumb area S/P inguinal hernia repair right History of open reduction and internal fixation (ORIF) procedure right forearm with hardware S/P revision of total knee left knee History of total knee arthroplasty Left knee History of vasectomy Family History Father Diabetes Hypertension Mother Cancer Denies family history of Ovarian cancer Prostate cancer Myocardial infarction Breast cancer Social History Smoking Status: Never smoker Second Hand Exposure: No; Do You Dip or Chew Tobacco: No; Hx Alcohol Use: Yes Alcohol Intake Frequency: Monthly or Less Hx Substance Use: No Preferred Language: Syriac Communication Ability: Effective Hearing Ability: Use of Hearing Aid 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 Required: No Beliefs That Will Affect Care: None marital status: Single Current Living Situation: Alone current occupational status: retired How many Children do You have: 0 Feels Safe at Home: Yes Childhood Exposure to Second-Hand Smoke: Yes Diet: regular caffeine: Yes (Coffee ) Dental Care, Regularly: Yes 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: 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 Patient is in no apparent distress. Patient is well-developed. Eyes: Pupils are equal round and reactive to light. Conjunctivae are normal. Anicteric sclera. Ears nose, mouth and throat: Mallampati class 2. Normal posterior oropharynx. Uvula is midline. Neck: Trachea is midline. Visual inspection is normal. Respiratory: Clear to auscultation bilaterally. No use of accessory muscles. No significant clubbing noted. Cardiovascular: Regular rate and rhythm. No murmurs. No edema. Gastrointestinal: Normal bowel sounds, soft, nontender and nondistended. No hepatosplenomegaly noted. Musculoskeletal: No cyanosis. Patient is able to move all extremities. Strength is 5 out of 5 in the upper and lower extremities. Skin: No rashes, warm dry and intact. Neurologic: No obvious focal neurological deficits seen. Psychiatric: Alert and oriented x3 with a euthymic affect. Results & Data Results & Data Vital Signs (Past 12 Hours) Vital Signs Temp Pulse Pulse Resp BP BP Pulse Ox 03/12/23 14:45 70 15 100 03/12/23 14:45 150/93 H 03/12/23 14:30 148/80 H 03/12/23 14:30 78 22 93 03/12/23 14:15 140/80 03/12/23 14:15 65 17 97 03/12/23 14:10 03/12/23 14:00 122/74 03/12/23 14:00 65 17 100 03/12/23 13:45 67 17 99 03/12/23 13:45 126/83 03/12/23 13:42 03/12/23 13:38 36.8 C 68 20 127/80 98 03/12/23 13:30 136/86 03/12/23 13:30 75 16 98 03/12/23 13:25 75 20 91 03/12/23 13:25 127/80 03/12/23 13:23 03/12/23 13:23 36.8 C 68 20 127/80 98 03/12/23 11:12 03/12/23 11:10 98 03/12/23 11:04 97 H 03/12/23 11:00 101 H 18 98 03/12/23 11:00 165/106 H 03/12/23 10:59 175/133 H 03/12/23 10:56 36.7 C 102 H 22 165/102 H 98 Pulse Ox O2 Del Method O2 Del Method 03/12/23 14:45 03/12/23 14:45 03/12/23 14:30 03/12/23 14:30 03/12/23 14:15 03/12/23 14:15 03/12/23 14:10 99 Room Air 03/12/23 14:00 03/12/23 14:00 03/12/23 13:45 03/12/23 13:45 03/12/23 13:42 Room Air 03/12/23 13:38 Room Air 03/12/23 13:30 03/12/23 13:30 03/12/23 13:25 03/12/23 13:25 03/12/23 13:23 Room Air 03/12/23 13:23 Room Air 03/12/23 11:12 Room Air 03/12/23 11:10 03/12/23 11:04 03/12/23 11:00 03/12/23 11:00 03/12/23 10:59 03/12/23 10:56 Room Air Coding Level of Care Code 86767 IN/OBS CONSULT LVL 2,35M Diagnoses Coronary artery disease I25.10 Acute WA, inferior wall I21.19
[2023-03-12] MEDS: TICAGRELOR 90 MG TAB ONE (17:52)
[2023-03-12] MEDS: fentaNYL citrate PF 100 MCG/2 ML VIAL ONE ×2 (17:52→17:53)
[2023-03-12] MEDS: NITROGLYCERIN/D5W 100MCG/ML 20ML SYR ONE (17:52)
[2023-03-12] MEDS: MIDAZOLAM HCL 1 MG/ML 2ML VIAL ONE ×2 (17:52→17:53)
[2023-03-12] MEDS: HEPARIN (PORCINE) 1000 UNIT/ML 10 ML (CATH LAB USE ONLY) ONE ×2 (17:52→17:53)
[2023-03-12] MEDS: niCARdipine HCL INJ 2.5 MG/ML 10 ML AMP ONE (17:52)
[2023-03-12] MEDS: HEPARIN 25000 UNIT/500 ML D5W IV ONE (17:53)
[2023-03-12] MEDS: diphenhydrAMINE 50 MG/ML VIAL ONE (17:53)
[2023-03-12] MEDS: ASPIRIN 81 MG CHEW ONE (17:53)
[2023-03-12] MEDS: HEPARIN SODIUM/DEXTROSE 25,000 UNITS/500 ML BAG IV SCH (17:54)
[2023-03-12 20:09] LABS: ANTI-Xa, UFH(UnfractionatedHep 1.23 IU/ml (0.3-0.7)
[2023-03-12] MEDS: TICAGRELOR 90 MG TAB PO SCH (20:53)
[2023-03-12] MEDS: METOPROLOL TARTRATE 25 MG TAB PO SCH (20:54)
[2023-03-12 23:58] LABS: ANTI-Xa, UFH(UnfractionatedHep 0.42 IU/ml (0.3-0.7)
[2023-03-13 03:26] LABS: Basophils # (auto) 0.06 K/uL (0.00-0.20); Basophils % (auto) 0.8 %; Eosinophils # (auto) 0.23 K/uL (0.00-0.50); Eosinophils % (auto) 2.9 %; Hematocrit (blood only) 38.3 % (42.0-52.0); Hemoglobin 12.6 g/dl (14.0-18.0); Immature Granulocytes # (auto) 0.05 K/uL (0.01-0.20); Immature Granulocytes % (auto) 0.6 %; Lymphocytes # (auto) 1.66 K/uL (1.20-3.40); Lymphocytes % (auto) 21.2 %; Mean Corpuscular Hemoglobin 29.2 pg (25.0-34.0); Mean Corpuscular Hgb Conc 32.9 g/dL (32.0-36.0); Mean Corpuscular Volume 88.9 fL (80.0-100.0); Mean Platelet Volume 9.5 fL (9.4-12.4); Monocytes # (auto) 0.81 K/uL (0.11-0.59); Monocytes % (auto) 10.3 %; Neutrophils # (auto) 5.03 K/uL (1.40-6.50); Neutrophils % (auto) 64.2 %; Platelet Count 228 K/uL (130-400); RDW Coefficient of Variation 14.2 % (11.5-14.5); RDW Standard Deviation 45.7 fL (36.4-46.3); Red Blood Count 4.31 M/uL (4.70-6.10); White Blood Count 7.84 K/ul (4.8-10.8)
[2023-03-13 03:39] LABS: Albumin Level 3.7 gm/dl (3.4-5.0); BUN Creatinine Ratio 17.1 (10-20); Bilirubin,Total 0.5 mg/dl (0.2-1.0); Calcium 8.4 mg/dl (8.6-10.3); Chol HDL Ratio 3.1 (0-5); Creatinine Clr Calc Pharmacy 66.6 ml/min; Est GFR (Non-African American) 68.1 ml/min; Magnesium 2.2 mg/dl (1.7-2.4); Phosphorus 3.1 mg/dl (2.5-4.9); Potassium 3.8 mmol/L (3.5-5.1); Total Protein 6.3 gm/dl (6.0-8.3)
[2023-03-13 04:00] LABS: Troponin I High Sensitivity 8735.4 pg/ml (0-20)
[2023-03-13 07:22] LABS: Estimated Average Glucose 114 mg/dl; Hemoglobin A1C 5.6 % (4.5-5.6)
[2023-03-13] MEDS: POTASSIUM CHLORIDE CRTAB 20 MEQ TABCR PO STA (07:24)
--- NOTE | 2023-03-13 07:34 | Critical Care Progress Note ---
Date of Service March 13, 2023 Assessment & Plan (1) STEMI (ST elevation myocardial infarction): (2) Coronary artery disease: (3) Atherogenic dyslipidemia: (4) Benign essential hypertension: (5) BPH (benign prostatic hyperplasia): Plan Reason Critically Ill: 77-year-old male presenting with acute ST RYAN status post cardiac catheterization with inability to intervene currently on heparin drip. NEURO - * CAM ICU: NEGATIVE CARDIAC/VASCULAR - * ACUTE STEMI: * s/p cardiac catheterization which demonstrated difficult anatomy with inability to pass wire. Patient with existing coronary artery disease with atherogenic plaque noted. Continues on heparin drip for now. Defer to management continued by his primary cardiology team. * Continue with ASCVD Rx per typical. He used to been started on metoprolol and hydralazine. * Monitor on telemetry. RESPIRATORY - * No history of pulmonary disease. * Saturating well on room air GI/NUTRITION - * Heart healthy diet. * Prophylaxis: Not indicated RENAL/LYTES - * No significant electrolyte derangements. - * Monitor I&Os per unit policy. ENDO - * No h/o DM or Thyroid Disease. * BSGs per unit protocol. ISS --> gtt per unit policy. HEME - * Stable H&H * Monitor for s/s bleeding while on Heparin gtt. ID - * No concerns for infection at this time. LINES/IV ACCESS - * PIVs x2 DVT PROPHYLAXIS - * Heparin gtt * SCDs Thank you for allowing us to participate in the care of this patient. Please refer to my attending physician's documentation for any further recommendations. Admission and Anticipated Discharge Date Admission Date: March 12, 2023 Supervising Physician Co-Signing Physician Notes Patient seen and examined. EMR reviewed. Agree with assessment plan as noted by BRYAN. Patient is chest pain-free. Okay to transfer to telemetry. Critical care will sign off. Feel free to contact us with questions or concerns Subjective Patient seen and evaluated at bedside. He reports resolved chest discomfort. He states that he had felt better prior to arrival. He is out of bed in a chair at this point. He is anxious to be discharged home soon. He offers no complaints otherwise. Review of Systems Review of Systems: A complete 10 point review of systems was reviewed with the patient with pertinent positives and negatives as per history of present illness. All else were negative. Physical Exam Physical Exam: VITAL SIGNS - Vital signs and nursing notes were reviewed. GENERAL - 77-year-old male appearing his stated age who is in no acute distress. Communicates well with provider and answers questions appropriately. SKIN - Without rashes. HEAD - NC/AT. EYES - PERRL with EOMI bilaterally. Sclera anicteric. EARS - No deformities of external structures noted on gross examination bilaterally. NOSE - Midline and without cyanosis. MOUTH/OROPHARYNX - Without perioral cyanosis. NECK - Neck with FROM. LUNGS - Chest wall symmetric without accessory muscle use, intercostals retractions, or central cyanosis. Normal vesicular breath sounds CTA B/L. No wheezes, rales, or rhonchi appreciated. CARDIAC - RRR with S1/S2. No murmur, rubs, or gallops appreciated. ABDOMEN - Abdominal contour flat without pulsations or visible masses. BS normoactive all four quadrants. No tenderness, palpable masses, hepatospleno megaly, or ascites noted. EXTREMITIES - No clubbing or peripheral cyanosis. No pretibial edema present. +3/5 radial pulses palpated throughout. NEUROLOGIC - Cranial nerves II through XII grossly intact. PSYCH - A&Ox3 and cooperates fully with examiner. Pt is very pleasant and interacts well with examiner. Results & Data Results & Data Vital Signs (Past 12 Hours) Vital Signs Pulse Pulse Resp BP BP Pulse Ox O2 Del Method 03/13/23 01:00 60 16 110/59 L 97 Room Air 03/13/23 00:00 111/64 03/13/23 00:00 74 14 98 03/13/23 00:00 66 03/12/23 23:00 63 21 98 03/12/23 23:00 107/63 03/12/23 22:00 119/70 03/12/23 22:00 119/70 03/12/23 22:00 119/70 03/12/23 22:00 68 20 98 03/12/23 21:00 74 18 03/12/23 21:00 114/67 03/12/23 20:54 83 122/67 03/12/23 20:52 72 16 95 03/12/23 20:00 81 03/12/23 20:00 135/79 03/12/23 20:00 86 18 96 Coding Level of Care Code 37365 SUB INP/OBS CARE 3/50MIN Diagnoses STEMI (ST elevation myocardial infarction) I21.3 Coronary artery disease I25.10 Atherogenic dyslipidemia E78.5 Benign essential hypertension I10 Benign prostatic hyperplasia, unspecified whether lower urinary tract symptoms present N40.0 Lower urinary tract symptom presence: unspecified whether lower urinary tract symptoms present (5) BPH (benign prostatic hyperplasia) Lower urinary tract symptom presence: unspecified whether lower urinary tract symptoms present Qualified Code(s): N40.0 - Benign prostatic hyperplasia without lower urinary tract symptoms
[2023-03-13 07:41] LABS: ANTI-Xa, UFH(UnfractionatedHep 0.34 IU/ml (0.3-0.7)
--- NOTE | 2023-03-13 09:28 | Electrocardiogram Report ---
Test Reason : Blood Pressure : / mmHG Vent. Rate : 100 BPM Atrial Rate : 100 BPM P-R Int : 170 ms QRS Dur : 090 ms QT Int : 328 ms P-R-T Axes : 019 -03 064 degrees QTc Int : 423 ms Normal sinus rhythm Inferior-posterior infarct , possibly acute ACUTE AL / STEMI Abnormal ECG When compared with ECG of 04-APR-2022 12:08, Significant changes have occurred Confirmed by Reuben Haro ([id number]) on 03/13/2023 9:28:20 AM Referred By: Confirmed By:Reuben Haro
[2023-03-13] MEDS: ASPIRIN 81 MG ECTAB PO SCH (09:37)
--- NOTE | 2023-03-13 09:44 | Electrocardiogram Report ---
Test Reason : Blood Pressure : / mmHG Vent. Rate : 067 BPM Atrial Rate : 067 BPM P-R Int : 176 ms QRS Dur : 090 ms QT Int : 398 ms P-R-T Axes : 031 -27 013 degrees QTc Int : 420 ms Normal sinus rhythm Inferior infarct , age undetermined (cited on or before 12-MAR-2023) Abnormal ECG When compared with ECG of 12-MAR-2023 11:01, (unconfirmed) Vent. rate has decreased BY 33 BPM Serial changes of evolving Inferior infarct Present Confirmed by Reuben Haro ([id number]) on 03/13/2023 9:44:02 AM Referred By: REFERRED SELF Confirmed By:Reuben Haro
--- NOTE | 2023-03-13 17:04 | Cardiology Progress Note ---
Date of Service March 13, 2023 Assessment & Plan (1) STEMI (ST elevation myocardial infarction): Plan: Status post PTCA. There is significant residual calcified RCA disease. Troponin peaked at 11,340. Seems to be tolerating medications without recurrence of chest pain. He will remain on aspirin and Brilinta. I am awaiting the results of his echocardiogram. He will also remain on guideline directed medical therapy for secondary prevention including statin, beta- jesus, plus or minus EMMANUEL inhibitor/ARB. For now, I do not intend to proceed with intervention on the right coronary at this time. This will likely be planned as an outpatient if he remains stable from a symptom standpoint. May consider referral to tertiary center given significant potential for complication which may require cardiac surgical backup and because more advanced atherectomy can also be an option at those facilities. (2) Benign essential hypertension: Plan: Blood pressure is adequate today. No changes in his regimen for today. (3) Atherogenic dyslipidemia: Plan: High risk. Currently on atorvastatin 40 mg. His LDL and HDL at baseline seem to be at target. Plan Complete additional 24 hours heparin drip and then we will discontinue the heparin. He is appropriate for stepdown to intermediate care at this time. Admission and Anticipated Discharge Date Admission Date: March 12, 2023 Subjective Patient did well overnight. No recurrence of chest discomfort and no shortness of breath. Mild ecchymosis at radial access site. He denies other complaints. Echo was completed results are pending. Review of Systems Review of Systems: Negative except as per HPI Physical Exam Constitutional: WD/WN, vitals as above Eyes: Extraocular muscles intact. Sclera are anicteric. ENMT: Oral mucosa is pink moist and intact Neck: No JVD or bruits appreciated Respiratory: Clear to auscultation bilaterally. No wheezing, rhonchi, or rales. Cardiovascular: Regular rate and rhythm. S4 gallop. I do not appreciate any rubs or murmurs. No edema. Musculoskeletal: no cyanosis or clubbing, extremities motor strength 5/5 (Small ecchymosis right radial access) Neurologic: Cognition is intact. Speech is fluent. Significantly diminished hearing. No focal motor deficits. No tremor. Psychiatric: A+Ox3, euthymic affect Results & Data Vital Signs (Past 12 Hours) Vital Signs Temp Pulse Resp BP Pulse Ox O2 Del Method 01/29/24 11:36 36.6 C 03/13/23 11:01 80 18 103/66 99 Room Air 03/13/23 10:01 77 19 105/75 97 Room Air 03/13/23 09:13 78 19 156/75 H 98 Room Air 03/13/23 08:01 73 20 123/93 99 Room Air 03/13/23 07:30 36.7 C 03/13/23 07:01 68 22 134/67 97 Room Air PG Care Time/CCT Total # of Minutes Spent Total Time Spent with Patient: Total time spent is greater than 50% in coordination of care (as documented) at patient's floor/unit and/or counseling patient: Coding Level of Care Code 77138 SUB INP/OBS CARE 2/35MIN Diagnoses STEMI (ST elevation myocardial infarction) I21.3 Benign essential hypertension I10 Atherogenic dyslipidemia E78.5
--- NOTE | 2023-03-13 22:23 | Hospitalist Progress Note ---
Date of Service March 13, 2023 Assessment & Plan (1) STEMI (ST elevation myocardial infarction): Plan: Aspirin initial dose taken pre-hospital, continue 81mg PO daily Brilinta loaded in the ER, continue 90mg PO BID Start metoprolol tartrate 25mg PO BID Aim O2 > 94% IV heparin as ordered by cardiology will continue with IV heparin for another 24 hours and will stop on 03/14 Patient will be transferred out of the ICU. (2) Hyperlipidemia: Plan: Repeat lipid panel with AM labs Start atorvastatin 40mg PO daily (3) Benign localized prostatic hyperplasia with lower urinary tract symptoms (LUTS): Plan: Continue tamsulosin as long as BP stable after starting on metoprolol (4) ADHD: Plan: Hold Concerta in setting of STEMI (5) Acute [place], inferior wall: Plan VTE prophylaxis - IV heparin Diet - heart healthy Disposition - admit to ICU Admission and Anticipated Discharge Date Admission Date: March 12, 2023 Subjective Patient reports no new symptoms. Review of Systems Review of Systems: All systems reviewed & are unremarkable except as noted in HPI & below Physical Exam Constitutional: WD/WN, vitals as above ENMT: external ear and nose normal, oropharynx normal Respiratory: normal respiratory effort, lungs clear to auscultation Cardiovascular: RRR, no murmur, no edema Gastrointestinal (Abdomen): normal bowel sounds, soft, nontender, no hepatosplenomegaly Skin: no rashes, warm and dry Psychiatric: A+Ox3, euthymic affect Results & Data Results & Data Vital Signs (Past 12 Hours) Vital Signs Temp Pulse Pulse Resp BP BP Pulse Ox 03/13/23 20:08 36.6 C 74 16 113/67 97 03/13/23 20:00 66 03/13/23 11:36 36.6 C 03/13/23 11:01 80 18 103/66 99 O2 Del Method 03/13/23 20:08 Room Air 03/13/23 20:00 03/13/23 11:36 03/13/23 11:01 Room Air PG Care Time/CCT Total # of Minutes Spent Total Time Spent with Patient: Total time spent is greater than 50% in coordination of care (as documented) at patient's floor/unit and/or counseling patient: Coding Level of Care Code 87375 SUB INP/OBS CARE 2/35MIN Diagnoses STEMI (ST elevation myocardial infarction) I21.3 Mixed hyperlipidemia E78.2 Hyperlipidemia type: mixed hyperlipidemia Benign localized prostatic hyperplasia with lower urinary tract symptoms (LUTS) N40.1 Attention deficit hyperactivity disorder (ADHD), unspecified ADHD type F90.9 Attention deficit-hyperactivity disorder type: unspecified Acute UT, inferior wall I21.19 (2) Hyperlipidemia Hyperlipidemia type: mixed hyperlipidemia Qualified Code(s): E78.2 - Mixed hyperlipidemia (4) ADHD Attention deficit-hyperactivity disorder type: unspecified Qualified Code(s): F90.9 - Attention-deficit hyperactivity disorder, unspecified type
[2023-03-14 04:00] LABS: BUN Creatinine Ratio 19.1 (10-20); Calcium 9.1 mg/dl (8.6-10.3); Creatinine Clr Calc Pharmacy 63.6 ml/min; Est GFR (African American) 74.7 ml/min; Est GFR (Non-African American) 64.4 ml/min; Magnesium 2.1 mg/dl (1.7-2.4); Phosphorus 3.5 mg/dl (2.5-4.9); Potassium 4.3 mmol/L (3.5-5.1)
[2023-03-14 04:14] LABS: ANTI-Xa, UFH(UnfractionatedHep 0.41 IU/ml (0.3-0.7)
--- NOTE | 2023-03-14 23:47 | Hospitalist Progress Note ---
Date of Service March 14, 2023 Assessment & Plan (1) STEMI (ST elevation myocardial infarction): Plan: Aspirin initial dose taken pre-hospital, continue 81mg PO daily Brilinta loaded in the ER, continue 90mg PO BID Start metoprolol tartrate 25mg PO BID Aim O2 > 94% IV heparin stopped on 03/14 (2) Hyperlipidemia: Plan: Repeat lipid panel with AM labs Start atorvastatin 40mg PO daily (3) Benign localized prostatic hyperplasia with lower urinary tract symptoms (LUTS): Plan: Continue tamsulosin as long as BP stable after starting on metoprolol (4) ADHD: Plan: Hold Concerta in setting of STEMI (5) Acute [place], inferior wall: Plan VTE prophylaxis - IV heparin Diet - heart healthy Disposition - admit to ICU Admission and Anticipated Discharge Date Admission Date: March 12, 2023 Subjective Patient reports no new symptoms. Physical Exam Constitutional: WD/WN, vitals as above ENMT: external ear and nose normal, oropharynx normal Respiratory: normal respiratory effort, lungs clear to auscultation Cardiovascular: RRR, no murmur, no edema Gastrointestinal (Abdomen): normal bowel sounds, soft, nontender, no hepatosplenomegaly Skin: no rashes, warm and dry Psychiatric: A+Ox3, euthymic affect Results & Data Results & Data Vital Signs (Past 12 Hours) Vital Signs Temp Pulse Pulse Resp BP BP Pulse Ox 03/14/23 22:59 36.8 C 61 20 122/55 L 96 03/14/23 19:28 36.9 C 67 20 118/69 96 03/14/23 18:52 36.8 C 74 16 133/78 98 03/14/23 17:22 37.0 C 03/14/23 17:18 72 20 148/78 H 98 03/14/23 13:12 36.8 C 03/14/23 13:11 70 20 135/68 99 03/14/23 13:09 72 21 135/68 99 O2 Del Method 03/14/23 22:59 Room Air 03/14/23 19:28 Room Air 03/14/23 18:52 Room Air 03/14/23 17:22 03/14/23 17:18 Room Air 03/14/23 13:12 03/14/23 13:11 Room Air 03/14/23 13:09 Room Air PG Care Time/CCT Total # of Minutes Spent Total Time Spent with Patient: Total time spent is greater than 50% in coordination of care (as documented) at patient's floor/unit and/or counseling patient: Coding Level of Care Code 56615 SUB INP/OBS CARE MIN Diagnoses STEMI (ST elevation myocardial infarction) I21.3 Mixed hyperlipidemia E78.2 Hyperlipidemia type: mixed hyperlipidemia Benign localized prostatic hyperplasia with lower urinary tract symptoms (LUTS) N40.1 Attention deficit hyperactivity disorder (ADHD), unspecified ADHD type F90.9 Attention deficit-hyperactivity disorder type: unspecified Acute [place], inferior wall I21.19 (2) Hyperlipidemia Hyperlipidemia type: mixed hyperlipidemia Qualified Code(s): E78.2 - Mixed hyperlipidemia (4) ADHD Attention deficit-hyperactivity disorder type: unspecified Qualified Code(s): F90.9 - Attention-deficit hyperactivity disorder, unspecified type
[2023-03-15 07:00] LABS: ANTI-Xa, UFH(UnfractionatedHep < 0.10 IU/ml (0.3-0.7)
[2023-03-15 07:02] LABS: BUN Creatinine Ratio 21.7 (10-20); Calcium 9.8 mg/dl (8.6-10.3); Est GFR (African American) 78.1 ml/min; Est GFR (Non-African American) 67.4 ml/min; Magnesium 2.3 mg/dl (1.7-2.4); Phosphorus 3.4 mg/dl (2.5-4.9); Potassium 4.7 mmol/L (3.5-5.1)
[2023-03-15 07:58] VITALS: RESP 18
[2023-03-15 11:15] VITALS: BP 121/70; PULSE 66; TEMP 98.4; O2SAT 99
--- NOTE | 2023-03-15 13:42 | Discharge Summary ---
Date of Service March 15, 2023 Admission HPI Per Admitting Provider Ewelina davies is a 77 year old male who presents to the ER with chest pain. He reports having jaw/chin pain yesterday lasting for 15 minutes at rest. This morning the same pain occurred but with a chest tightness severity 4/10, associated shortness of breath. Pain started at 8:30 AM and lasted approximately 40 minutes. He is no longer having pain in the emergency room. No associated nausea or dizziness. He has no prior cardiac history. After this pain occurred he called his friend who recommended he takes 81 mg aspirin x4 and called for an ambulance. Prehospital EKG showed ST elevations in inferior leads and the patient was a heart alert in the emergency room. Patient was briefly seen precardiac cath and reviewed in the ICU postcardiac cath. Principal Diagnosis STEMI Discharge Exam Constitutional WD/WN, vitals as above ENMT external ear and nose normal, oropharynx normal Respiratory normal respiratory effort, lungs clear to auscultation Cardiovascular RRR, no murmur, no edema Gastrointestinal (Abdomen) normal bowel sounds, soft, nontender, no hepatosplenomegaly Skin no rashes, warm and dry Psychiatric A+Ox3, euthymic affect Discharge Data Allergies Allergy/AdvReac Type Severity Reaction Status Date / Time vancomycin Allergy Severe N/V, Verified 03/20/23 11:39 altered mental status, fever, chills, sweats,hives mold Allergy Mild Rhinitis Verified 03/20/23 11:39 pollen extracts Allergy Mild Rhinitis Verified 03/20/23 11:39 tree and shrub pollen Allergy Mild Rhinitis Verified 03/20/23 11:39 procaine AdvReac Intermediate Tachycardia Verified 03/20/23 11:39 doxycycline AdvReac Unknown Severe sun Verified 03/20/23 11:39 sensitivity Consultations 03/12/23 10:50 Consult Cardiac Catheterization Stat ED Decision to Admit Stat 03/12/23 11:33 Consult Senior Ssis Developer Routine 03/12/23 13:18 Consult Cardiac Rehabilitation Routine 03/12/23 14:10 Consult Senior Ssis Developer Routine Procedures Performed Operation Date: 03/12/23 11:15 Actual Procedures p Cath, Coronaries ONLY (no LV) - Danish Manuel MD, PhD p POBA SGL Vessel - Danish Manuel MD, PhD Ordered Studies 03/12/23 10:59 CL Cath Imgs for PACS use only Stat Hospital Course (1) STEMI (ST elevation myocardial infarction): Aspirin initial dose taken pre-hospital, continue 81mg PO daily Brilinta loaded in the ER, continue 90mg PO BID Start metoprolol tartrate 25mg PO BID Aim O2 > 94% IV heparin stopped on 03/14 Summary: 1. Severe occlusive coronary disease of the proximal RCA with thrombus and significantly reduced flow. This is the culprit lesion for inferior ST elevation IL. 2. Patient's right coronary anatomy and calcification made this a very difficult PCI. Unable to deliver stents today but we did have significant impr ovement in MISTY flow and modest improvement in lesion stenosis. 3. Patient was started on aspirin 81 mg daily and Brilinta 90 mg p.o. twice daily. He will also remain on heparin drip for the next 48 hours. 4. We will initiate guideline directed medical therapy for secondary prevention of coronary disease including; low-dose aspirin, high intensity statin therapy, beta-jesus, plus or minus EMMANUEL inhibitor/ARB. 5. We will consider reattempt of stent implantation at this facility versus referral to a tertiary center given the availability of cardiac surgical backup for this difficult case and a wider range of equipment options to improve likelihood of successful stent implantation. Discharge instructions noted below. (2) Hyperlipidemia: Repeat lipid panel with AM labs Start atorvastatin 40mg PO daily (3) Benign localized prostatic hyperplasia with lower urinary tract symptoms (LUTS): Continue tamsulosin as long as BP stable after starting on metoprolol (4) ADHD: Hold Concerta in setting of STEMI (5) Acute IL, inferior wall: Total Time Total Time Spent Total Time Spent (In Minutes): 32 Discharge Plan Discharge Items Patient Disposition: Home - Self-Care Reason For Visit: INFERIOR STEMI Discharge Diagnosis: Inferior STEMI Activity: Resume your previous activity Non-emergency contact: Primary Care Provider Call non-emergency contact if: you have any medication questions Follow-up/Referrals: Alma Montoya MD [Primary Care Provider] - 03/17/23 10:30 am Diet: Heart Healthy Addtl Attending Provider Instructions: If you have recurrent symptoms, please return to the ED> Home Care: * Take your medications exactly as directed. Don't skip doses. * Remember that recovery after a heart attack takes time. Plan to rest for at lease 4-8 weeks while you recover. Then return to normal activity when your doctor says it's okay. * Ask your doctor about joining a heart rehabilitation program. * Tell your doctor if you are feeling depressed. Feelings of sadness are common after a heart attack, but it is important that you speak to someone if you are feeling overwhelmed by these feelings. * If you are having chest pain, call 911 for an ambulance. Do NOT drive yourself to the hospital. * Ask your family members to learn CPR. * Learn to take your own blood pressure and pulse. Keep a record of your results. Ask your doctor when you should seek emergency medical attention. He or she will tell you which blood pressure reading is dangerous. Lifestyle Changes: * Maintain a healthy weight. Get help to lose any extra pounds. * Cut back on salt. * Limit canned, dried, packaged, and fast foods. * Don't add salt to your food. * Season foods with herbs instead of salt when you cook. * Break the smoking habit. Enroll in a stop-smoking program to improve your chances of success. * Limit fatty foods. * Ask your doctor about having your lipid levels checked regularly. * Build up your activity according to your doctor's recommendation. * Ask your doctor when it's okay to resume sexual activity. * Tell your doctor about any erectile dysfunction (ED) medication you are taking. Some ED medications are not safe if you take certain heart medi cations. * Try to manage stress. Follow Up: It is important for you to keep your follow up appointments with your medical provider. Pending Studies at Discharge: No Stand-Alone Forms: My [facility], Smoking Cessation Medications and DC Order Prescriptions: New atorvastatin 40 mg Tablet 40 mg PO QAM Qty: 30 0RF Brilinta 90 mg Tablet 90 mg PO BID Qty: 60 0RF aspirin 81 mg Tablet,Delayed Release (Dr/Ec) 81 mg PO QAM Qty: 30 0RF metoprolol succinate 50 mg tablet extended release 24 hr 50 mg PO PM Qty: 30 0RF Continued psyllium husk [Fiber (psyllium husk)] 0.4 gram capsule 0.4 g PO DAILY Qty: 30 0RF tamsulosin 0.4 mg capsule 0.4 mg PO DAILY Qty: 30 11RF Discontinued sildenafil 50 mg Tablet 50 mg PO DAILY PRN (Reason: Erectile Dysfunction) Rx Instructions: administer 30 minutes to 4 hours before activity atomoxetine 40 mg Capsule 40 mg PO DAILY atorvastatin 20 mg Tablet 20 mg PO DAILY Discharge Orders: Discharge Order (Routine); Ordered 03/15/23 Ordered By: Herman Palomino Admission Data Admit Date/Time: 03/12/23 11:31 Attending Provider: Herman Palomino Admit Provider: Renzo Guerrero Primary Care Provider: Alma Montoya Other Providers: Danish Manuel; Renzo Guerrero; Stevan Gilbert Other Interventions: Discharge Summary Assessment (RN) Last Done: 03/15/23 13:56 Coding Level of Care Code 35199 INP/OBS DISCH >30 MIN Diagnoses STEMI (ST elevation myocardial infarction) I21.3 Mixed hyperlipidemia E78.2 Hyperlipidemia type: mixed hyperlipidemia Benign localized prostatic hyperplasia with lower urinary tract symptoms (LUTS) N40.1 Attention deficit hyperactivity disorder (ADHD), unspecified ADHD type F90.9 Attention deficit-hyperactivity disorder type: unspecified Acute IL, inferior wall I21.19
--- NOTE | 2023-03-16 12:08 | XCELERA ---
[id number]
== END 2023-03-15 14:25 | disposition home or self-care (01) | DRG 251 ==
LOC: ED 10:59 → CC 11:16 → 1E 11:16 → SUATTDRO 11:31 → 1E 11:31 → 2E 03-14 18:43
PROC: CLB.CCO (2023-03-12 11:15)